=== PATIENT | female | born 1995 | race Caucasian/White ===

== ENCOUNTER 2017-04-15 11:26 | Emergency (ER) | payer OTHER ==
[2017-04-15] MEDS ORDERED: Ondansetron 4 MG/2 ML SDV IVPUSH ONE (12:19)
[2017-04-15] MEDS ORDERED: Sodium Chloride 0.9% 2.5 ML Syringe FLUSH PRN (12:19)
[2017-04-15] MEDS ORDERED: Sodium Chloride 0.9% 10 ML Syringe FLUSH PRN (12:19)
[2017-04-15] MEDS ORDERED: Sodium Chloride 0.9% 1,000 ML IV ONE (12:19)
--- NOTE | 2017-04-15 12:19 | EDM.PDOC ---
ED HPI GENERAL MEDICAL PROBLEM - General Chief Complaint: Gastrointestinal Problem Stated Complaint: NAUSEA/VOMITING Time Seen by Provider: 04/15/17 12:16 Source of Information: Reports: Patient, Family History Limitations: Reports: No Limitations - History of Present Illness INITIAL COMMENTS - FREE TEXT/NARRATIVE: HISTORY AND PHYSICAL: [] 22-year-old female who is complaining of nausea and vomiting. History of Present Illness: []Patient is 7-1/2 weeks . She has had some morning sickness but yesterday was unable to get out of bed and had morning sickness all day. Patient stated that she had diarrhea to the nurse . Review of Systems: As per history of present illness and below otherwise all systems reviewed and negative. Past medical history: As per history of present illness and as reviewed below otherwise noncontributory. Surgical history: As per history of present illness and as reviewed below otherwise noncontributory. Social history: No reported history of drug or alcohol abuse. Family history: As per history of present illness and as reviewed below otherwise noncontributory. Physical exam: Alert, pale female. Who states she does not feel ill other than the nausea and vomiting . Speaking well in full sentences without any shortness of breath HEENT: Atraumatic, normocehpalic, pupils reactive, negative for conjunctival pallor or scleral icterus, mucous membranes moist, throat clear, neck supple, nontender, trachea midline. Lungs: Clear to auscultation, breath sounds equal bilaterally, chest non tender. Heart: S1S2, regular, negative for clicks, rubs, or JVD. Abdomen: Soft, nondistended, nontender. Negative for masses or hepatossplenmegaly. Negative for costovertebral tenderness. Pelvis: Stable nontender. Genitourinary: Deferred. Rectal: Deferred Extremities: Atraumatic, negative for cords or calf pain. Neurovascular unremarkable. Neuro: Awake, alert, oriented. Cranial nerves II through XII unremarkable. Cerebellum unremarkable. Motor and sensory unremarkable throughout. Exam nonfocal. Patient is improved with the fluids given and Zofran. Diagnostics: [CBC CMP UA] Therapeutics: [1 L Normal saline IV] Zofran Impression: [Morning sickness/hyperemesis ] Plan: [Discharged to home Zofran 4 mg ODT Follow-up with your provider this week] Definitive disposition and diagnosis as appropriate pending reevaluation and review of above. Onset: Gradual Duration: Day(s): Location: Reports: Abdomen Severity: Moderate Improves with: Reports: None Worsens with: Reports: None - Related Data Allergies Allergy/AdvReac Type Severity Reaction Status Date / Time No Known Allergies Allergy Verified 04/15/17 11:54 Home Meds: Home Meds Ondansetron [Zofran ODT] 4 mg PO Q6H PRN #7 tab.dis 04/15/17 [Rx] Pnv No.95/Ferrous Fum/Folic AC [ Multivitamin Tablet] 1 each PO DAILY [History] Past Medical History [employer] History: Reports: Endocrine/Metabolic History: Reports: Other (See Below) Other Endocrine/Metabolic History: Reports treated for Graves disease last year Social & Family History - Family History Family Medical History: Noncontributory - Tobacco Use Smoking Status *Q: Never Smoker - Caffeine Use Caffeine Use: Reports: None - Recreational Drug Use Recreational Drug Use: No ED ROS GENERAL - Review of Systems Review Of Systems: ROS reveals no pertinent complaints other than HPI. ED EXAM, GI/ABD - Physical Exam Exam: See Below (See dictation) Course - Vital Signs Last Recorded V/S: Last Vital Signs Temp 37.2 C 04/15/17 12:07 Pulse 118 H 04/15/17 12:07 Resp 16 04/15/17 12:07 BP 129/76 04/15/17 12:07 Pulse Ox 97 04/15/17 12:07 - Orders/Labs/Meds Orders: Active Orders 24 hr Category Date Time Status Sodium Chloride 0.9% [Saline Flush] Med 04/15/17 12:19 Active 10 ml FLUSH ASDIRECTED PRN Sodium Chloride 0.9% [Saline Flush] Med 04/15/17 12:19 Active 2.5 ml FLUSH ASDIRECTED PRN Saline Lock Insert [OM.PC] Stat Oth 04/15/17 12:19 Ordered Medication Orders Sodium Chloride (Saline Flush) 10 ml FLUSH ASDIRECTED PRN PRN Reason: Keep Vein Open Last Admin: 04/15/17 13:02 Dose: 10 ml Sodium Chloride (Saline Flush) 2.5 ml FLUSH ASDIRECTED PRN PRN Reason: Keep Vein Open Last Admin: 04/15/17 13:02 Dose: 2.5 ml Labs: Laboratory Tests 04/15/17 04/15/17 04/15/17 Range/Units 12:05 12:26 12:26 WBC 7.70 (4.0-11.0) K/uL RBC 4.80 (4.30-5.90) M/uL Hgb 14.2 (12.0-16.0) g/dL Hct 39.4 (36.0-46.0) % MCV 82.1 (80.0-98.0) fL MCH 29.6 (27.0-32.0) pg MCHC 36.0 (31.0-37.0) g/dL RDW Std Deviation 35.1 (28.0-62.0) fl RDW Coeff of Maisha 12 (11.0-15.0) % Plt Count 256 (150-400) K/uL MPV 9.60 (7.40-12.00) fL Neut % (Auto) 68.0 (48.0-80.0) % Lymph % (Auto) 19.5 (16.0-40.0) % [place] % (Auto) 11.7 (0.0-15.0) % Eos % (Auto) 0.5 (0.0-7.0) % Baso % (Auto) 0.3 (0.0-1.5) % Neut # (Auto) 5.2 (1.4-5.7) K/uL Lymph # (Auto) 1.5 (0.6-2.4) K/uL [place] # (Auto) 0.9 H (0.0-0.8) K/uL Eos # (Auto) 0.0 (0.0-0.7) K/uL Baso # (Auto) 0.0 (0.0-0.1) K/uL Nucleated RBC % 0.0 /100WBC Nucleated RBCs # 0 K/uL Sodium 137 (136-146) mmol/L Potassium 3.8 (3.5-5.1) mmol/L Chloride 107 (98-110) mmol/L Carbon Dioxide 20 L (21-31) mmol/L BUN 7 (6.0-23.0) mg/dL Creatinine 0.6 (0.6-1.5) mg/dL Est Cr Clr Drug Dosing 160.39 mL/min Estimated GFR (MDRD) > 60.0 ml/min Glucose 107 (60-110) mg/dL Calcium 10.5 (8.8-10.8) mg/dL Total Bilirubin 0.4 (0.1-1.5) mg/dL AST 16 (5-40) IU/L ALT 20 (8-54) IU/L Alkaline Phosphatase 49 (40-150) Total Protein 7.6 (6.0-8.0) g/dL Albumin 4.3 (3.5-5.0) g/dL Globulin 3.3 (2.0-3.5) g/dL Albumin/Globulin Ratio 1.3 (1.3-2.8) Urine Color YELLOW Urine Appearance CLEAR Urine pH 6.0 (5.0-8.0) Ur Specific [place] 1.020 (1.001-1.035) Urine Protein NEGATIVE (NEGATIVE) mg/dL Urine Glucose (UA) NEGATIVE (NEGATIVE) mg/dL Urine Ketones 15 H (NEGATIVE) mg/dL Urine Occult Blood NEGATIVE (NEGATIVE) Urine Nitrite NEGATIVE (NEGATIVE) Urine Bilirubin SMALL H (NEGATIVE) Urine Ictotest NEGATIVE Urine Urobilinogen 0.2 (<2.0) EU/dL Ur Leukocyte Esterase NEGATIVE (NEGATIVE) Urine RBC NONE SEEN (0-2/HPF) Urine WBC 2-3 (0-5/HPF) Ur Epithelial Cells FEW (NONE-FEW) Amorphous Sediment HEAVY (NEGATIVE) Urine Bacteria FEW (NEGATIVE) Urine Mucus MODERATE (NONE-MOD) Meds: Medications Generic Name Dose Route Start Last Admin Trade Name Freq PRN Reason Stop Dose Admin Sodium Chloride 10 ml 04/15/17 12:19 04/15/17 13:02 Saline Flush FLUSH 10 ml ASDIRECTED PRN Administration Keep Vein Open Sodium Chloride 2.5 ml 04/15/17 12:19 04/15/17 13:02 Saline Flush FLUSH 2.5 ml ASDIRECTED PRN Administration Keep Vein Open Discontinued Medications Generic Name Dose Route Start Last Admin Trade Name Freq PRN Reason Stop Dose Admin Sodium Chloride 1,000 mls @ 999 mls/hr 04/15/17 12:19 04/15/17 12:42 Normal Saline IV 04/15/17 13:19 999 mls/hr STAT ONE Administration Ondansetron HCl 4 mg 04/15/17 12:19 04/15/17 12:42 Zofran IVPUSH 04/15/17 12:20 4 mg ONETIME ONE Administration Departure - Departure Time of Disposition: 13:31 Disposition: Home, Self-Care 01 Condition: Good Clinical Impression: Vomiting, Hyperemesis - Discharge Information Prescriptions: Ondansetron [Zofran ODT] 4 mg PO Q6H PRN #7 tab.dis PRN Reason: Nausea/Vomiting Instructions: Dehydration, Adult, [id number], Hyperemesis Gravidarum Referrals: Mimi Cole CNM [Primary Care Provider] - Forms: ED Department Discharge Additional Instructions: The following information is given to patients seen in the emergency department who are being discharged to home. This information is to outline your options for follow-up care. We provide all patients seen in our emergency department with a follow-up referral. The need for follow-up, as well as the timing and circumstances, are variable depending upon the specifics of your emergency department visit. If you don't have a primary care physician on staff, we will provide you with a referral. We always advise you to contact your personal physician following an emergency department visit to inform them of the circumstance of the visit and for follow-up with them and/or the need for any referrals to a consulting specialist. The emergency department will also refer you to a specialist when appropriate. This referral assures that you have the opportunity for followup care with a specialist. All of these measure are taken in an effort to provide you with optimal care, which includes your followup. Under all circumstances we always encourage you to contact your private physician who remains a resource for coordinating your care. When calling for followup care, please make the office aware that this follow-up is from your recent emergency room visit. If for any reason you are refused follow-up, please contact the [facility] emergency department at and asked to speak to the emergency department charge nurse. You were given fluids in the ER to help with. Mild dehydration Zofran was given to help with her nausea Prescriptions for Zofran were sent to your pharmacy - My Orders Last 24 Hours: My Active Orders 04/15/17 12:19 Sodium Chloride 0.9% [Saline Flush] 10 ml FLUSH ASDIRECTED PRN Sodium Chloride 0.9% [Saline Flush] 2.5 ml FLUSH ASDIRECTED PRN Saline Lock Insert [OM.PC] Stat - Assessment/Plan Last 24 Hours: My Active Orders 04/15/17 12:19 Sodium Chloride 0.9% [Saline Flush] 10 ml FLUSH ASDIRECTED PRN Sodium Chloride 0.9% [Saline Flush] 2.5 ml FLUSH ASDIRECTED PRN Saline Lock Insert [OM.PC] Stat
[2017-04-15 12:55] LABS: CHLORIDE,CL 107 mmol/L (98-110); SODIUM,NA 137 mmol/L (136-146)
== END 2017-04-15 13:45 | disposition home or self-care (01) ==
LOC: MW.ED 11:26
DX: O21.0 Mild hyperemesis gravidarum (principal); Z3A.01 Less than 8 weeks gestation of pregnancy
CPT/HCPCS: 36415; 80053; 81001; 85025; 87804; 96361; 96374; 99284; J2405; J7040

== ENCOUNTER 2017-06-03 22:02 | Emergency (ER) | payer OTHER ==
[2017-06-03] MEDS ORDERED: Sodium Chloride 0.9% 1,000 ML IV ONE (22:14)
[2017-06-03] MEDS ORDERED: Ondansetron 4 MG/2 ML SDV IVPUSH ONE (22:14)
--- NOTE | 2017-06-03 22:15 | EDM.PDOC ---
ED HPI GENERAL MEDICAL PROBLEM - General Chief Complaint: [employer] Problem Stated Complaint: PT VOMITING AND 14WKS Time Seen by Provider: 06/03/17 22:14 Source of Information: Reports: Patient - History of Present Illness INITIAL COMMENTS - FREE TEXT/NARRATIVE: HISTORY AND PHYSICAL: History of present illness: [Patient 14 weeks with IUP presents with 4 out of 5 abdominal cramping and multiple episodes of vomiting to numerous to count today no fever chills sweats no chest pain shortness breath headache dizziness palpitation no bowel or urine symptoms.... Symptoms improved/resolved with fluids No low back pain vaginal discharge leakage or bleeding spotting ] Review of systems: As per history of present illness and below otherwise all systems reviewed and negative. Past medical history: As per history of present illness and as reviewed below otherwise noncontributory. Surgical history: As per history of present illness and as reviewed below otherwise noncontributory. Social history: No reported history of drug or alcohol abuse. Family history: As per history of present illness and as reviewed below otherwise noncontributory. Physical exam: HEENT: Atraumatic, normocephalic, pupils reactive, negative for conjunctival pallor or scleral icterus, mucous membranes moist, throat clear, neck supple, nontender, trachea midline. Lungs: Clear to auscultation, breath sounds equal bilaterally, chest nontender. Heart: S1S2, regular, negative for clicks, rubs, or JVD. Abdomen: Soft, nondistended, nontender. Negative for masses or hepatosplenomegaly. Negative for costovertebral tenderness. Pelvis: Stable nontender. Genitourinary: Deferred. Rectal: Deferred. Extremities: Atraumatic, negative for cords or calf pain. Neurovascular unremarkable. Neuro: Awake, alert, oriented. Cranial nerves II through XII unremarkable. Cerebellum unremarkable. Motor and sensory unremarkable throughout. Exam nonfocal. Diagnostics: [UA ] Therapeutics: [1 L normal saline bolus Zofran 8 mg IV Zofran 8 mg ODT every 8 hours when necessary #30 no refill Rest fluids nutrition Follow-up with OB ] Impression: [ hyperemesis gravidarum ] Definitive disposition and diagnosis as appropriate pending reevaluation and review of above. Abdomen Pain Score (Numeric/FACES): 6 - Related Data Allergies Allergy/AdvReac Type Severity Reaction Status Date / Time No Known Allergies Allergy Verified 06/03/17 22:07 Home Meds: Home Meds Ondansetron [Zofran ODT] 4 mg PO Q6H PRN #7 tab.dis 04/15/17 [Rx] Pnv No.95/Ferrous Fum/Folic AC [ Multivitamin Tablet] 1 each PO DAILY [History] Past Medical History [employer]ERSON History: Reports: Endocrine/Metabolic History: Reports: Other (See Below) Other Endocrine/Metabolic History: Reports treated for Graves disease last year Social & Family History - Family History Family Medical History: Noncontributory - Tobacco Use Smoking Status *Q: Never Smoker - Caffeine Use Caffeine Use: Reports: None - Recreational Drug Use Recreational Drug Use: No ED ROS GENERAL - Review of Systems Review Of Systems: ROS reveals no pertinent complaints other than HPI. ED EXAM, GENERAL - Physical Exam Exam: See Below Course - Vital Signs Last Recorded V/S: Last Vital Signs Temp 98.7 F 06/03/17 22:02 Pulse 129 H 06/03/17 22:02 Resp 18 06/03/17 22:02 BP 128/73 06/03/17 22:02 Pulse Ox 96 06/03/17 22:02 - Orders/Labs/Meds Orders: Active Orders 24 hr Category Date Time Status UA W/MICROSCOPIC [URIN] Stat Lab 06/03/17 22:15 Ordered Sodium Chloride 0.9% [Normal Saline] 1,000 ml Med 06/03/17 22:14 Active IV STAT Medication Orders Sodium Chloride (Normal Saline) 1,000 mls @ 999 mls/hr IV STAT ONE Stop: 06/03/17 23:14 Last Admin: 06/03/17 22:27 Dose: 999 mls/hr Labs: Laboratory Tests 06/03/17 Range/Units 22:15 Urine Color YELLOW Urine Appearance CLEAR Urine pH 5.5 (5.0-8.0) Ur Specific [place] >= 1.030 (1.001-1.035) Urine Protein TRACE (NEGATIVE) mg/dL Urine Glucose (UA) NEGATIVE (NEGATIVE) mg/dL Urine Ketones >=80 (NEGATIVE) mg/dL Urine Occult Blood NEGATIVE (NEGATIVE) Urine Nitrite NEGATIVE (NEGATIVE) Urine Bilirubin SMALL H (NEGATIVE) Urine Ictotest NEGATIVE Urine Urobilinogen 0.2 (<2.0) EU/dL Ur Leukocyte Esterase NEGATIVE (NEGATIVE) Urine RBC 0-3 (0-2/HPF) Urine WBC 1-4 (0-5/HPF) Ur Epithelial Cells FEW (NONE-FEW) Urine Bacteria FEW (NEGATIVE) Meds: Medications Generic Name Dose Route Start Last Admin Trade Name Frenaeem PRN Reason Stop Dose Admin Sodium Chloride 1,000 mls @ 999 mls/hr 06/03/17 22:14 06/03/17 22:27 Normal Saline IV 06/03/17 23:14 999 mls/hr STAT ONE Administration Discontinued Medications Generic Name Dose Route Start Last Admin Trade Name Freq PRN Reason Stop Dose Admin Ondansetron HCl 8 mg 06/03/17 22:14 06/03/17 22:27 Zofran IVPUSH 06/03/17 22:15 8 mg ONETIME ONE Administration Departure - Departure Time of Disposition: 23:05 Disposition: Home, Self-Care 01 Condition: Good Clinical Impression: Hyperemesis - Discharge Information Referrals: PCP,None [Primary Care Provider] - Forms: ED Department Discharge Additional Instructions: The following information is given to patients seen in the emergency department who are being discharged to home. This information is to outline your options for follow-up care. We provide all patients seen in our emergency department with a follow-up referral. The need for follow-up, as well as the timing and circumstances, are variable depending upon the specifics of your emergency department visit. If you don't have a primary care physician on staff, we will provide you with a referral. We always advise you to contact your personal physician following an emergency department visit to inform them of the circumstance of the visit and for follow-up with them and/or the need for any referrals to a consulting specialist. The emergency department will also refer you to a specialist when appropriate. This referral assures that you have the opportunity for follow-up care with a specialist. All of these measure are taken in an effort to provide you with optimal care, which includes your follow-up. Under all circumstances we always encourage you to contact your private physician who remains a resource for coordinating your care. When calling for follow-up care, please make the office aware that this follow-up is from your recent emergency room visit. If for any reason you are refused follow-up, please contact the [facility] emergency department at and asked to speak to the emergency department charge nurse. - My Orders Last 24 Hours: My Active Orders 06/03/17 22:14 Sodium Chloride 0.9% [Normal Saline] 1,000 ml IV STAT 06/03/17 22:15 UA W/MICROSCOPIC [URIN] Stat - Assessment/Plan Last 24 Hours: My Active Orders 06/03/17 22:14 Sodium Chloride 0.9% [Normal Saline] 1,000 ml IV STAT 06/03/17 22:15 UA W/MICROSCOPIC [URIN] Stat
== END 2017-06-03 23:30 | disposition home or self-care (01) ==
LOC: MW.ED 22:02
DX: O21.0 Mild hyperemesis gravidarum (principal); Z79.899 Other long term (current) drug therapy; Z3A.14 14 weeks gestation of pregnancy
CPT/HCPCS: 81001; 96361; 96374; 99284; J2405; J7040

== ENCOUNTER 2017-11-18 06:11 | Inpatient (IN) | payer OTHER ==
[2017-11-18] MEDS ORDERED: Methylergonovine 0.2 MG/1 ML Amp IM PRN (06:38)
[2017-11-18] MEDS ORDERED: Tranexamic Acid 1,000 MG in Sodium Chloride 0.9% 100 ML IV PRN (06:38)
[2017-11-18] MEDS ORDERED: Butorphanol 1 MG/ML SDV IVPUSH PRN (06:38)
[2017-11-18] MEDS ORDERED: Sodium Chloride 0.9% 10 ML Syringe FLUSH PRN (06:38)
[2017-11-18] MEDS ORDERED: Nalbuphine 10 MG/1 ML Vial IVPUSH PRN ×2 (06:38→09:34)
[2017-11-18] MEDS ORDERED: Misoprostol 200 MCG Tab PO PRN (06:38)
[2017-11-18] MEDS ORDERED: Lidocaine 1% 50 ML MDV INJECT PRN (06:38)
[2017-11-18] MEDS ORDERED: Water For Irrigation,Sterile 1,000 ML Container IRR PRN (06:38)
[2017-11-18] MEDS ORDERED: Carboprost Tromethamine 250 MCG/1 ML Amp IM PRN (06:38)
[2017-11-18] MEDS ORDERED: Sodium Chloride 0.9% 2.5 ML Syringe FLUSH PRN (06:38)
[2017-11-18] MEDS: Lactated Ringers 1,000 ML IV SCH ×2 (06:41→07:43)
[2017-11-18] MEDS ORDERED: Oxytocin/0.9 % Sodium Chloride 30 UNIT/500 ML BAG IV SCH ×2 (06:45→08:30)
--- NOTE | 2017-11-18 07:06 | PCM.LDHP ---
L&D History of Present Illness - General Date of Service: 11/18/17 Admit Problem/Dx: Patient Status Order with Admit Dx/Problem 11/18/17 06:37 Patient Status [ADT] Routine 11/18/17 06:39 Patient Status [ADT] Routine Admission Diagnosis/Problem Admission Diagnosis/Problem 11/18/17 06:58 22yo EDC 11/29/2017 38 3/7wks, B+, R-NI, GBS neg. SROM bloody, FHT non reassuring Source of Information: Patient History Limitations: Reports: No Limitations - History of Present Illness Timing/Duration: Reports: minutes: Location, : Reports: Abdomen Quality: Reports: Stabbing Improves with: Reports: None Worsens with: Reports: None Associated Symptoms: Reports: N - Related Data Allergies/Adverse Reactions: Allergies Allergy/AdvReac Type Severity Reaction Status Date / Time No Known Allergies Allergy Verified 06/03/17 22:07 Home Medications: Home Meds Ondansetron [Zofran ODT] 4 mg PO Q6H PRN #7 tab.dis 04/15/17 [Rx] Pnv No.95/Ferrous Fum/Folic AC [ Multivitamin Tablet] 1 each PO DAILY [History] Past Medical History [employer] History: Reports: Endocrine/Metabolic History: Reports: Other (See Below) Other Endocrine/Metabolic History: Reports treated for Graves disease last year Dermatologic History: Reports: Other (See Below) Other Dermatologic History: foot cyst - Past Surgical History GI Surgical History: Reports: Appendectomy Social & Family History - Family History Family Medical History: Noncontributory - Caffeine Use Caffeine Use: Reports: None H&P Review of Systems - Review of Systems: Review Of Systems: See Below General: Reports: No Symptoms HEENT: Reports: No Symptoms Pulmonary: Reports: No Symptoms Cardiovascular: Reports: No Symptoms Gastrointestinal: Reports: No Symptoms Genitourinary: Reports: No Symptoms Musculoskeletal: Reports: No Symptoms Skin: Reports: No Symptoms Psychiatric: Reports: No Symptoms Neurological: Reports: No Symptoms Hematologic/Lymphatic: Reports: No Symptoms Immunologic: Reports: No Symptoms L&D Exam - Exam Exam: See Below - Vital Signs Weight: 89.386 kg - OB Specific Contraction Intensity: Strong Movement: Active Heart Tones: Present Heart Tones per Min: 140 (Cat II) Heart Rate (FHR) Variability: Moderate (6-25 bmp) Presentation: Vertex - Mathews Score Mathews Score Cervix Position: Midposition Mathews Score Consistency: Soft Mathews Score Effacement: >80% Mathews Score Dilation: 3-4 cm Mathews Score Infant's Station: -2 Mathews Score Total: 9 - Exam General: Alert, Oriented HEENT: Hearing Intact Lungs: Clear to Auscultation, Normal Respiratory Effort Cardiovascular: Regular Rate, Regular Rhythm, Normal S1, Normal S2 GI/Abdominal Exam: Soft Rectal Exam: Deferred Genitourinary: Normal external exam, Normal bimanual exam, Cervical dilitation, Cervical fluid, Vaginal bleeding Back Exam: Normal Inspection, Full Range of Motion Extremities: Normal Inspection, Normal Range of Motion, Non-Tender, No Pedal Edema, Normal Capillary Refill Skin: Warm, Dry, Intact Neurological: Cranial Nerves Intact, Reflexes Equal Bilateral, Strength Equal Bilateral, Normal Speech, Normal Tone Psychiatric: Alert, Normal Affect, Normal Mood - Patient Data Lab Results Last 24 hrs: Laboratory Results - last 24 hr 11/18/17 Range/Units 06:40 WBC 10.80 (4.0-11.0) K/uL RBC 4.34 (4.30-5.90) M/uL Hgb 12.8 (12.0-16.0) g/dL Hct 36.6 (36.0-46.0) % MCV 84.3 (80.0-98.0) fL MCH 29.5 (27.0-32.0) pg MCHC 35.0 (31.0-37.0) g/dL RDW Std Deviation 39.4 (28.0-62.0) fl RDW Coeff of Maisha 13 (11.0-15.0) % Plt Count 217 (150-400) K/uL MPV 10.80 (7.40-12.00) fL Nucleated RBC % 0.0 /100WBC Nucleated RBCs # 0 K/uL Result Diagrams: 11/18/17 06:40 - Problem List (1) Supervision of normal IUP (intrauterine ) in primigravida SNOMED Code(s): 83478738, 181970980, 517863121, 704875214 ICD Code: Z34.00 - ENCNTR FOR SUPRVSN OF NORMAL FIRST , UNSP TRIMESTER Status: Acute Priority: High Current Visit: Yes Qualifiers: Trimester: third trimester Qualified Code(s): Z34.03 - Encounter for supervision of normal first , third trimester (2) Delayed delivery after SROM (spontaneous rupture of membranes) SNOMED Code(s): 95868817 ICD Code: O42.90 - BÁRBARA ROM, 7TH0 BETW RUPT & ONST LABR, UNSP WEEKS OF GEST Status: Acute Priority: High Current Visit: Yes Problem List Initiated/Reviewed/Updated: Yes Orders Last 24hrs: Active Orders 24 hr Category Date Time Status Patient Status [ADT] Routine ADT 11/18/17 06:37 Active Patient Status [ADT] Routine ADT 11/18/17 06:39 Active Heart Tones [RC] CONTINUOUS Care 11/18/17 06:39 Active Non Stress Test [RC] PER UNIT ROUTINE Care 11/18/17 06:37 Active Non Stress Test [RC] PER UNIT ROUTINE Care 11/18/17 06:39 Active May Shower [RC] ASDIRECTED Care 11/18/17 06:39 Active Notify Provider [RC] PRN Care 11/18/17 06:39 Active Up ad Marysol [RC] ASDIRECTED Care 11/18/17 06:37 Active Up ad Marysol [RC] ASDIRECTED Care 11/18/17 06:39 Active Vaginal Exam [RC] Click to Edit Care 11/18/17 06:37 Active Vaginal Exam [RC] PRN Care 11/18/17 06:39 Active Vital Signs [RC] PER UNIT ROUTINE Care 11/18/17 06:37 Active Vital Signs [RC] PER UNIT ROUTINE Care 11/18/17 06:39 Active TYPE AND SCREEN [BBK] Routine Lab 11/18/17 06:40 Received Butorphanol [Stadol] Med 11/18/17 06:38 Active 1 mg IVPUSH Q1H PRN Carboprost Tromethamine [Hemabate DS] Med 11/18/17 06:38 Active 250 mcg IM ASDIRECTED PRN Lactated Ringers [Ringers, Lactated] 1,000 ml Med 11/18/17 06:45 Active IV ASDIRECTED Lidocaine 1% [Xylocaine 1%] Med 11/18/17 06:38 Active 50 ml INJECT ONETIME PRN Methylergonovine [Methergine] Med 11/18/17 06:38 Active 0.2 mg IM ASDIRECTED PRN Nalbuphine [Nubain] Med 11/18/17 06:38 Active 10 mg IVPUSH Q1H PRN Oxytocin/0.9 % Sodium Chloride [Oxytocin 30 Unit/500 ML Med 11/18/17 06:45 Active -NS] 30 unit in 500 ml IV TITRATE Sodium Chloride 0.9% [Saline Flush] Med 11/18/17 06:38 Active 10 ml FLUSH ASDIRECTED PRN Sodium Chloride 0.9% [Saline Flush] Med 11/18/17 06:38 Active 2.5 ml FLUSH ASDIRECTED PRN Tranexamic Acid [Cyklokapron] 1,000 mg Med 11/18/17 06:38 Active Sodium Chloride 0.9% [Normal Saline] 100 ml IV ONETIME Water For Irrigation,Sterile [Sterile Water for Med 11/18/17 06:38 Active Irrigation] 1,000 ml IRR ASDIRECTED PRN miSOPROStol [Cytotec] Med 11/18/17 06:38 Active 200 mcg PO ONETIME PRN Scalp Electrode [WOMSER] Per Unit Routine Oth 11/18/17 06:39 Ordered Peripheral IV Insertion Adult [OM.PC] Routine Oth 11/18/17 06:39 Ordered Resuscitation Status Routine Resus Stat 11/18/17 06:36 Ordered Medication Orders Butorphanol Tartrate (Stadol) 1 mg IVPUSH Q1H PRN PRN Reason: Pain Carboprost Tromethamine (Hemabate Ds) 250 mcg IM ASDIRECTED PRN PRN Reason: Post Hemorrhage Tranexamic Acid 1,000 mg/ (Sodium Chloride) 110 mls @ 660 mls/hr IV ONETIME PRN PRN Reason: Bleeding Lactated Ringer's (Ringers, Lactated) 1,000 mls @ 150 mls/hr IV ASDIRECTED MAXIMINO Last Admin: 11/18/17 06:41 Dose: 150 mls/hr Oxytocin/Sodium Chloride (Oxytocin 30 Unit/500 Ml-Ns) 30 unit in 500 mls @ 999 mls/hr IV TITRATE MAXIMINO Lidocaine HCl (Xylocaine 1%) 50 ml INJECT ONETIME PRN PRN Reason: Laceration repair Methylergonovine Maleate (Methergine) 0.2 mg IM ASDIRECTED PRN PRN Reason: Post Hemorrhage Misoprostol (Cytotec) 200 mcg PO ONETIME PRN PRN Reason: Post Hemorrhage Nalbuphine HCl (Nubain) 10 mg IVPUSH Q1H PRN PRN Reason: Pain (severe 7-10) Sodium Chloride (Saline Flush) 10 ml FLUSH ASDIRECTED PRN PRN Reason: Keep Vein Open Sodium Chloride (Saline Flush) 2.5 ml FLUSH ASDIRECTED PRN PRN Reason: Keep Vein Open Sterile Water (Sterile Water For Irrigation) 1,000 ml IRR ASDIRECTED PRN PRN Reason: delivery Assessment/Plan Comment:: Labor A: 22yo EDC 11/29/2017 38 3/7wks, B+, R-NI, GBS neg. 2-80/-2 SROM bloody, FHT non reassuring Cat II tracing P: Admit, IV w/bolus, GBS neg, Epidural now, Dr Landon updated. Considering C/S due to FHT.
--- NOTE | 2017-11-18 07:26 | PCM.PREANE ---
Preanesthetic Assessment - Anesthesia/Transfusion/Family Hx Anesthesia History: Prior Anesthesia Without Reaction Family History of Anesthesia Reaction: No Transfusion History: No Prior Transfusion(s) - Review of Systems General: No Symptoms Pulmonary: No Symptoms Cardiovascular: No Symptoms Gastrointestinal: No Symptoms Neurological: No Symptoms Other: Reports: None - Physical Assessment Height: 5 ft 10 in Weight: 89.386 kg ASA Class: 2 Mental Status: Alert & Oriented x3 Airway Class: Mallampati = 2 Dentition: Reports: Normal Dentition Thyro-Mental Finger Breadths: 3 Mouth Opening Finger Breadths: 3 ROM/Head Extension: Full Lungs: Clear to Auscultation, Normal Respiratory Effort Cardiovascular: Regular Rate, Regular Rhythm - Lab Values: Laboratory Last Values WBC 10.80 K/uL (4.0-11.0) 11/18/17 06:40 RBC 4.34 M/uL (4.30-5.90) 11/18/17 06:40 Hgb 12.8 g/dL (12.0-16.0) 11/18/17 06:40 Hct 36.6 % (36.0-46.0) 11/18/17 06:40 MCV 84.3 fL (80.0-98.0) 11/18/17 06:40 MCH 29.5 pg (27.0-32.0) 11/18/17 06:40 MCHC 35.0 g/dL (31.0-37.0) 11/18/17 06:40 RDW Std Deviation 39.4 fl (28.0-62.0) 11/18/17 06:40 RDW Coeff of Maisha 13 % (11.0-15.0) 11/18/17 06:40 Plt Count 217 K/uL (150-400) 11/18/17 06:40 MPV 10.80 fL (7.40-12.00) 11/18/17 06:40 Nucleated RBC % 0.0 /100WBC 11/18/17 06:40 Nucleated RBCs # 0 K/uL 11/18/17 06:40 - Allergies Allergies/Adverse Reactions: Allergies Allergy/AdvReac Type Severity Reaction Status Date / Time No Known Allergies Allergy Verified 06/03/17 22:07 - Anesthesia Plan Free Text/Narrative:: possible placental abruption per Mimi Mora. Type and cross ordered by me , possible . - Acknowledgements Anesthesia Type Planned: Epidural Pt an Appropriate Candidate for the Planned Anesthesia: Yes Alternatives and Risks of Anesthesia Discussed w Pt/Guardian: Yes Pt/Guardian Understands and Agrees with Anesthesia Plan: Yes PreAnesthesia Questionnaire HEENT History: Reports: None Cardiovascular History: Reports: None Respiratory History: Reports: None Gastrointestinal History: Reports: GERD Genitourinary History: Reports: None CONGRESSIONAL AIDE History: Reports: : 1 Para: 0 LMP (Approximate): Musculoskeletal History: Reports: None Neurological History: Reports: None Psychiatric History: Reports: None Endocrine/Metabolic History: Reports: Hypothyroidism, Other (See Below) Other Endocrine/Metabolic History: Reports treated for Graves disease last year Hematologic History: Reports: None Immunologic History: Reports: None Oncologic (Cancer) History: Reports: None Dermatologic History: Reports: Other (See Below) Other Dermatologic History: foot cyst - Infectious Disease History Infectious Disease History: Reports: None - Past Surgical History GI Surgical History: Reports: Appendectomy - HOME MEDS Home Medications: Home Meds Ondansetron [Zofran ODT] 4 mg PO Q6H PRN #7 tab.dis 04/15/17 [Rx] Pnv No.95/Ferrous Fum/Folic AC [ Multivitamin Tablet] 1 each PO DAILY [History] - CURRENT (IN HOUSE) MEDS Current Meds: Current Medications Butorphanol Tartrate (Stadol) 1 mg IVPUSH Q1H PRN PRN Reason: Pain Carboprost Tromethamine (Hemabate Ds) 250 mcg IM ASDIRECTED PRN PRN Reason: Post Hemorrhage Tranexamic Acid 1,000 mg/ (Sodium Chloride) 110 mls @ 660 mls/hr IV ONETIME PRN PRN Reason: Bleeding Lactated Ringer's (Ringers, Lactated) 1,000 mls @ 150 mls/hr IV ASDIRECTED [facility] Last Admin: 11/18/17 06:41 Dose: 150 mls/hr Oxytocin/Sodium Chloride (Oxytocin 30 Unit/500 Ml-Ns) 30 unit in 500 mls @ 999 mls/hr IV TITRATE [facility]IMINO Lidocaine HCl (Xylocaine 1%) 50 ml INJECT ONETIME PRN PRN Reason: Laceration repair Methylergonovine Maleate (Methergine) 0.2 mg IM ASDIRECTED PRN PRN Reason: Post Hemorrhage Misoprostol (Cytotec) 200 mcg PO ONETIME PRN PRN Reason: Post Hemorrhage Nalbuphine HCl (Nubain) 10 mg IVPUSH Q1H PRN PRN Reason: Pain (severe 7-10) Sodium Chloride (Saline Flush) 10 ml FLUSH ASDIRECTED PRN PRN Reason: Keep Vein Open Sodium Chloride (Saline Flush) 2.5 ml FLUSH ASDIRECTED PRN PRN Reason: Keep Vein Open Sterile Water (Sterile Water For Irrigation) 1,000 ml IRR ASDIRECTED PRN PRN Reason: delivery
[2017-11-18] MEDS ORDERED: Bupivacaine 0.5% 10 ML SDV ONE (08:08)
[2017-11-18] MEDS ORDERED: ceFAZolin 1 GM in Premix Bag 1 BAG IV ONE (08:23)
[2017-11-18] MEDS ORDERED: ceFAZolin 1 GM Vial ONE (08:27)
[2017-11-18] MEDS ORDERED: Sodium Chloride 0.9% 20 ML ONE (08:27)
[2017-11-18] MEDS ORDERED: Oxytocin 10 Units/1 ML SDV ONE (08:29)
[2017-11-18] MEDS ORDERED: Lactated Ringers 1,000 ML IV SCH ×2 (08:30→09:15)
[2017-11-18] MEDS ORDERED: Ondansetron 4 MG/2 ML SDV ONE (08:31)
[2017-11-18] MEDS ORDERED: Morphine PF 1 MG/ML Amp ONE (08:41)
[2017-11-18] MEDS ORDERED: ePHEDrine 50 MG/ML SDV ONE (08:48)
[2017-11-18] MEDS ORDERED: fentaNYL 100 MCG/2 ML SDV ONE ×2 (08:49→08:55)
[2017-11-18] MEDS ORDERED: Octyl 2-Cyanoacrylate 1 Tube ONE (09:10)
[2017-11-18] MEDS ORDERED: Lanolin 100% Cream 7 GM Tube TOP PRN (09:12)
[2017-11-18] MEDS ORDERED: Bisacodyl 10 MG Supp RECTAL PRN (09:12)
[2017-11-18] MEDS ORDERED: Acetaminophen/oxyCODONE 325-5 MG Tab PO PRN ×2 (09:12)
[2017-11-18] MEDS ORDERED: diphenhydrAMINE 50 MG/ML SDV IVPUSH PRN ×2 (09:12→09:34)
[2017-11-18] MEDS ORDERED: Ondansetron 4 MG/2 ML SDV IV PRN (09:12)
--- NOTE | 2017-11-18 09:15 | PCM.OPNOTE ---
- General Post-Op/Procedure Note Date of Surgery/Procedure: 11/18/17 Operative Procedure(s): Primary C/section Pre Op Diagnosis: [id number]+ nonreassuring FAR Post-Op Diagnosis: Same Anesthesia Technique: Epidural Primary Surgeon: Evaristo Landon Industrial Engineering: Mimi Cole EBL in mLs: 700 Complications: None Condition: Good
[2017-11-18] MEDS ORDERED: Naloxone 0.4 MG/ML Syringe IVPUSH PRN (09:34)
[2017-11-18] MEDS: Ketorolac 30 MG/ML SDV IVPUSH SCH ×3 (09:48→21:28)
--- NOTE | 2017-11-18 10:13 | PCM.POSTAN ---
POST ANESTHESIA ASSESSMENT - MENTAL STATUS Mental Status: Alert, Oriented - RESPIRATORY Respiratory Status: Respiratory Rate WNL, Airway Patent, O2 Saturation Stable - CARDIOVASCULAR CV Status: Pulse Rate WNL, Blood Pressure Stable - GASTROINTESTINAL GI Status: No Symptoms - PAIN Pain Score: 1 - POST OP HYDRATION Hydration Status: Adequate & Stable
[2017-11-18] MEDS: Docusate Sodium 100 MG Cap PO SCH (21:27)
[2017-11-19] MEDS: Ketorolac 30 MG/ML SDV IVPUSH SCH ×2 (05:02→10:07)
--- NOTE | 2017-11-19 09:43 | PCM48HPAN ---
Post Anesthesia Note - EVALUATION WITHIN 48HRS OF ANESTHETIC Vital Signs in Normal Range: Yes Patient Participated in Evaluation: Yes Respiratory Function Stable: Yes Airway Patent: Yes Cardiovascular Function Stable: Yes Hydration Status Stable: Yes Pain Control Satisfactory: Yes Nausea and Vomiting Control Satisfactory: Yes Mental Status Recovered: Yes Resp Rate: 15
[2017-11-19] MEDS: Docusate Sodium 100 MG Cap PO SCH (10:07)
--- NOTE | 2017-11-19 10:32 | PCM.PNPP ---
- General Info Date of Service: 11/19/17 Admission Dx/Problem (Free Text): Patient Status Order with Admit Dx/Problem 11/18/17 06:37 Patient Status [ADT] Routine 11/18/17 06:39 Patient Status [ADT] Routine Admission Diagnosis/Problem Admission Diagnosis/Problem 11/18/17 06:58 22yo EDC 11/29/2017 38 3/7wks, B+, R-NI, GBS neg. SROM bloody, FHT non reassuring Functional Status: Reports: Pain Controlled, Tolerating Diet, Ambulating, Urinating - Review of Systems General: Reports: No Symptoms HEENT: Reports: No Symptoms Pulmonary: Reports: No Symptoms Cardiovascular: Reports: No Symptoms Gastrointestinal: Reports: No Symptoms Genitourinary: Reports: No Symptoms Musculoskeletal: Reports: No Symptoms Skin: Reports: No Symptoms Neurological: Reports: No Symptoms Psychiatric: Reports: No Symptoms - General Info Date of Service: 11/19/17 - Patient Data Vital Signs - Most Recent: Last Vital Signs Temp 36.9 C 11/19/17 07:30 Pulse 64 11/19/17 07:30 Resp 15 11/19/17 09:43 BP 106/57 L 11/19/17 07:30 Pulse Ox 90 L 11/19/17 07:30 Weight - Most Recent: 89.386 kg I&O - Last 24 Hours: Intake & Output 11/18/17 11/19/17 11/19/17 22:59 06:59 14:59 Intake Total 750 Output Total 1800 Balance -1050 Lab Results - Last 24 Hours: Laboratory Results - last 24 hr 11/19/17 Range/Units 05:29 Hgb 11.2 L (12.0-16.0) g/dL Hct 32.5 L (36.0-46.0) % Med Orders - Current: Current Medications Bisacodyl (Dulcolax) 10 mg RECTAL ONETIME PRN PRN Reason: Constipation Butorphanol Tartrate (Stadol) 1 mg IVPUSH Q1H PRN PRN Reason: Pain Carboprost Tromethamine (Hemabate Ds) 250 mcg IM ASDIRECTED PRN PRN Reason: Post Hemorrhage Diphenhydramine HCl (Benadryl) 25 mg IVPUSH Q6H PRN PRN Reason: Itching or Nausea Docusate Sodium (Colace) 100 mg PO BID [facility] Last Admin: 11/19/17 10:07 Dose: 100 mg Emollient Ointment (Lansinoh Hpa) 0 gm TOP ASDIRECTED PRN PRN Reason: Sore Nipples Tranexamic Acid 1,000 mg/ (Sodium Chloride) 110 mls @ 660 mls/hr IV ONETIME PRN PRN Reason: Bleeding Lactated Ringer's (Ringers, Lactated) 1,000 mls @ 150 mls/hr IV ASDIRECTED [facility] Last Admin: 11/18/17 07:43 Dose: 999 mls/hr Oxytocin/Sodium Chloride (Oxytocin 30 Unit/500 Ml-Ns) 30 unit in 500 mls @ 999 mls/hr IV TITRATE [facility] Oxytocin/Sodium Chloride (Oxytocin 30 Unit/500 Ml-Ns) 30 unit in 500 mls @ 250 mls/hr IV TITRATE [facility] Lactated Ringer's (Ringers, Lactated) 1,000 mls @ 500 mls/hr IV BOLUS [facility] Last Admin: 11/18/17 08:10 Dose: 999 mls/hr Lactated Ringer's (Ringers, Lactated) 1,000 mls @ 125 mls/hr IV ASDIRECTED [facility] Last Admin: 11/18/17 15:04 Dose: 125 mls/hr Ibuprofen (Motrin) 800 mg PO Q8H PRN PRN Reason: mild pain or fever Lidocaine HCl (Xylocaine 1%) 50 ml INJECT ONETIME PRN PRN Reason: Laceration repair Methylergonovine Maleate (Methergine) 0.2 mg IM ASDIRECTED PRN PRN Reason: Post Hemorrhage Misoprostol (Cytotec) 200 mcg PO ONETIME PRN PRN Reason: Post Hemorrhage Nalbuphine HCl (Nubain) 10 mg IVPUSH Q1H PRN PRN Reason: Pain (severe 7-10) Ondansetron HCl (Zofran) 4 mg IV Q4H PRN PRN Reason: Nausea/Vomiting Last Admin: 11/18/17 16:25 Dose: 4 mg Oxycodone/Acetaminophen (Percocet 325-5 Mg) 1 tab PO Q4H PRN PRN Reason: Pain (moderate 4-6) Oxycodone/Acetaminophen (Percocet 325-5 Mg) 2 tab PO Q4H PRN PRN Reason: Pain (moderate 4-6) Sodium Chloride (Saline Flush) 10 ml FLUSH ASDIRECTED PRN PRN Reason: Keep Vein Open Sodium Chloride (Saline Flush) 2.5 ml FLUSH ASDIRECTED PRN PRN Reason: Keep Vein Open Sterile Water (Sterile Water For Irrigation) 1,000 ml IRR ASDIRECTED PRN PRN Reason: delivery Discontinued Medications Bupivacaine HCl (Sensorcaine-Mpf 0.5%) Confirm Administered Dose 20 ml .ROUTE .STK-MED ONE Stop: 11/18/17 08:09 Cefazolin Sodium (Ancef) Confirm Administered Dose 2 gm .ROUTE .STK-MED ONE Stop: 11/18/17 08:28 Diphenhydramine HCl (Benadryl) 25 mg IVPUSH Q4H PRN PRN Reason: Itching Stop: 11/19/17 09:35 Ephedrine Sulfate (Ephedrine Sulfate) Confirm Administered Dose 50 mg .ROUTE .STK-MED ONE Stop: 11/18/17 08:49 Fentanyl (Sublimaze) Confirm Administered Dose 100 mcg .ROUTE .STK-MED ONE Stop: 11/18/17 08:50 Fentanyl (Sublimaze) Confirm Administered Dose 100 mcg .ROUTE .STK-MED ONE Stop: 11/18/17 08:56 Fentanyl/Bupivacaine HCl (Svhwrsyu-Wjkbn-Lw 2 Mcg/Ml-0.125%) Confirm Administered Dose 100 mls @ as directed EP .STK-MED ONE Stop: 11/18/17 07:31 Cefazolin Sodium/Dextrose 1 gm (/ Premix) 50 mls @ 100 mls/hr IV ONETIME ONE Stop: 11/18/17 08:52 Sodium Chloride (Normal Saline) Confirm Administered Dose 20 mls @ as directed .ROUTE .STK-MED ONE Stop: 11/18/17 08:28 Acetaminophen (Ofirmev) Confirm Administered Dose 100 mls @ as directed IV .STK- MED ONE Stop: 11/18/17 09:04 Ketorolac Tromethamine (Toradol) 30 mg IVPUSH Q6H MAXIMINO Stop: 11/19/17 09:16 Last Admin: 11/19/17 10:07 Dose: 30 mg Morphine Sulfate (Duramorph Pf) Confirm Administered Dose 1 mg .ROUTE .STK-MED ONE Stop: 11/18/17 08:42 Nalbuphine HCl (Nubain) 5 mg IVPUSH Q3H PRN PRN Reason: Pruritis Stop: 11/19/17 09:35 Naloxone HCl (Narcan) 0.1 mg IVPUSH ONETIME PRN PRN Reason: Respiratory Depression Stop: 11/19/17 09:35 Octyl Cyanoacrylate (Dermabond Advance) Confirm Administered Dose 1 applic .ROUTE .STK-MED ONE Stop: 11/18/17 09:11 Ondansetron HCl (Zofran) Confirm Administered Dose 4 mg .ROUTE .STK-MED ONE Stop: 11/18/17 08:32 Oxytocin (Pitocin) Confirm Administered Dose 20 unit .ROUTE .STK-MED ONE Stop: 11/18/17 08:30 - Infant Interaction Disposition, : [place] to Nursery Interaction: Holding Infant Feeding: Breastfed ; Nursed Well Support Person: - Recovery Exam Fundal Tone: Firm Fundal Level: 1 Fingerbreadths Below Umbilicus Fundal Placement: Midline Lochia Amount: Scant Lochia Color: Rubra/Red Perineum Description: Intact, Minimal Bruising/Swelling Episiotomy/Laceration: Approximated Bladder Status: Voiding Urinary Elimination: Voided - Exam General: Alert, Cooperative, No Acute Distress Lungs: Clear to Auscultation, Normal Respiratory Effort Cardiovascular: Regular Rate, Regular Rhythm, No Murmurs GI/Abdominal Exam: Normal Bowel Sounds, Soft, Non-Tender, No Organomegaly, No Distention, No Abnormal Bruit, No Mass, Pelvis Stable Extremities: Normal Inspection, Normal Range of Motion, Non-Tender, No Pedal Edema, Normal Capillary Refill Skin: Warm, Dry, Intact Wound/Incisions: Healing Well, Dressing Dry and Intact, No Drainage Neurological: No New Focal Deficit, Normal Speech, Normal Tone, Strength Equal Bilateral Psy/Mental Status: Alert, Normal Affect, Normal Mood - Problem List & Annotations (1) Supervision of normal IUP (intrauterine ) in primigravida SNOMED Code(s): 36809797, 242149834, 534605485, 530280812 Code(s): Z34.00 - ENCNTR FOR SUPRVSN OF NORMAL FIRST , UNSP TRIMESTER Status: Acute Priority: High Current Visit: Yes Qualifiers: Trimester: third trimester Qualified Code(s): Z34.03 - Encounter for supervision of normal first , third trimester (2) Delayed delivery after SROM (spontaneous rupture of membranes) SNOMED Code(s): 14413350 Code(s): O42.90 - BÁRBARA ROM, 7TH0 BETW RUPT & ONST LABR, UNSP WEEKS OF GEST Status: Acute Priority: High Current Visit: Yes (3) delivery delivered SNOMED Code(s): 040073874 Code(s): O82 - ENCOUNTER FOR DELIVERY WITHOUT INDICATION Status: Acute Priority: High Current Visit: Yes - Problem List Review Problem List Initiated/Reviewed/Updated: Yes - Plan Plan:: Labor A: 22yo EDC 11/29/2017 38 3/7wks, B+, R-NI, GBS neg. 2-/-2 SROM bloody, FHT non reassuring Cat II tracing P: Admit, IV w/bolus, GBS neg, Epidural now, Dr Landon updated. Considering C/S due to FHT. PPD#1 A: VSS, AF, pain minimal, up out of bed walking well, lochia small, incision dressing noted no drainage, breast feeding well. No complaints P: routine pp plan of care. D/C home tomorrow with if continued stable.
[2017-11-19] MEDS: Ibuprofen 800 MG Tab PO PRN (16:26)
[2017-11-20] MEDS: Docusate Sodium 100 MG Cap PO SCH ×2 (00:26→08:21)
[2017-11-20] MEDS: Ibuprofen 800 MG Tab PO PRN (02:46)
--- NOTE | 2017-11-20 08:18 | PCM.DCSUM1 ---
Discharge Summary - Hospital Course Free Text/Narrative:: Discharge home with infant. Follow up in 1 weeks for incision check and 6 weeks for post . Diagnosis: Stroke: No - Discharge Data Discharge Date: 11/20/17 Discharge Disposition: Home, Self-Care 01 Condition: Good - Discharge Diagnosis/Problem(s) (1) Supervision of normal IUP (intrauterine ) in primigravida SNOMED Code(s): 77757463, 822923811, 557201642, 532817883 ICD Code: Z34.00 - ENCNTR FOR SUPRVSN OF NORMAL FIRST , UNSP TRIMESTER Status: Acute Priority: High Current Visit: Yes Qualifiers: Trimester: third trimester Qualified Code(s): Z34.03 - Encounter for supervision of normal first , third trimester (2) Delayed delivery after SROM (spontaneous rupture of membranes) SNOMED Code(s): 29120133 ICD Code: O42.90 - BÁRBARA ROM, 7TH0 BETW RUPT & ONST LABR, UNSP WEEKS OF GEST Status: Acute Priority: High Current Visit: Yes (3) delivery delivered SNOMED Code(s): 084250632 ICD Code: O82 - ENCOUNTER FOR DELIVERY WITHOUT INDICATION Status: Acute Priority: High Current Visit: Yes - Patient Summary/Data Operative Procedure(s) Performed: Primary C/section - Patient Instructions Diet: Usual Diet as Tolerated Activity: As Tolerated, No Strenuous Activities, Rest and Relax Today Driving: May Drive Today Showering/Bathing: May Shower Wound/Incision Care: Keep Operative Site/Wound Site Clean and Dry Notify Provider of: Fever, Increased Pain, Swelling and Redness, Drainage, Nausea and/or Vomiting Other/Special Instructions: Discharge home with . Follow up in 1 weeks for incision check and 6 weeks for post . - Discharge Plan *PRESCRIPTION DRUG MONITORING PROGRAM REVIEWED*: Not Applicable *COPY OF PRESCRIPTION DRUG MONITORING REPORT IN PATIENT PHOEBE: Not Applicable Home Medications: Home Meds Ondansetron [Zofran ODT] 4 mg PO Q6H PRN #7 tab.dis 04/15/17 [Rx] Pnv No.95/Ferrous Fum/Folic AC [ Multivitamin Tablet] 1 each PO DAILY [History] - General Info Date of Service: 11/20/17 Admission Dx/Problem (Free Text: Patient Status Order with Admit Dx/Problem 11/18/17 06:37 Patient Status [ADT] Routine 11/18/17 06:39 Patient Status [ADT] Routine Admission Diagnosis/Problem Admission Diagnosis/Problem 11/18/17 06:58 22yo EDC 11/29/2017 38 3/7wks, B+, R-NI, GBS neg. SROM bloody, FHT non reassuring Functional Status: Reports: Pain Controlled, Tolerating Diet, Ambulating, Urinating - Review of Systems General: Reports: No Symptoms HEENT: Reports: No Symptoms Pulmonary: Reports: No Symptoms Cardiovascular: Reports: No Symptoms Gastrointestinal: Reports: No Symptoms Genitourinary: Reports: No Symptoms Musculoskeletal: Reports: No Symptoms Skin: Reports: No Symptoms Neurological: Reports: No Symptoms Psychiatric: Reports: No Symptoms - Patient Data Vitals - Most Recent: Last Vital Signs Temp 36.8 C 11/20/17 03:52 Pulse 77 11/20/17 03:52 Resp 18 11/20/17 03:52 BP 109/68 11/20/17 03:52 Pulse Ox 97 11/20/17 03:52 Weight - Most Recent: 89.386 kg Med Orders - Current: Current Medications Bisacodyl (Dulcolax) 10 mg RECTAL ONETIME PRN PRN Reason: Constipation Butorphanol Tartrate (Stadol) 1 mg IVPUSH Q1H PRN PRN Reason: Pain Carboprost Tromethamine (Hemabate Ds) 250 mcg IM ASDIRECTED PRN PRN Reason: Post Hemorrhage Diphenhydramine HCl (Benadryl) 25 mg IVPUSH Q6H PRN PRN Reason: Itching or Nausea Docusate Sodium (Colace) 100 mg PO BID [facility] Last Admin: 11/20/17 00:26 Dose: 100 mg Emollient Ointment (Lansinoh Hpa) 0 gm TOP ASDIRECTED PRN PRN Reason: Sore Nipples Tranexamic Acid 1,000 mg/ (Sodium Chloride) 110 mls @ 660 mls/hr IV ONETIME PRN PRN Reason: Bleeding Lactated Ringer's (Ringers, Lactated) 1,000 mls @ 150 mls/hr IV ASDIRECTED [facility] Last Admin: 11/18/17 07:43 Dose: 999 mls/hr Oxytocin/Sodium Chloride (Oxytocin 30 Unit/500 Ml-Ns) 30 unit in 500 mls @ 999 mls/hr IV TITRATE [facility] Oxytocin/Sodium Chloride (Oxytocin 30 Unit/500 Ml-Ns) 30 unit in 500 mls @ 250 mls/hr IV TITRATE [facility] Lactated Ringer's (Ringers, Lactated) 1,000 mls @ 500 mls/hr IV BOLUS [facility] Last Admin: 11/18/17 08:10 Dose: 999 mls/hr Lactated Ringer's (Ringers, Lactated) 1,000 mls @ 125 mls/hr IV ASDIRECTED [facility] Last Admin: 11/18/17 15:04 Dose: 125 mls/hr Ibuprofen (Motrin) 800 mg PO Q8H PRN PRN Reason: mild pain or fever Last Admin: 11/20/17 02:46 Dose: 800 mg Lidocaine HCl (Xylocaine 1%) 50 ml INJECT ONETIME PRN PRN Reason: Laceration repair Methylergonovine Maleate (Methergine) 0.2 mg IM ASDIRECTED PRN PRN Reason: Post Hemorrhage Misoprostol (Cytotec) 200 mcg PO ONETIME PRN PRN Reason: Post Hemorrhage Nalbuphine HCl (Nubain) 10 mg IVPUSH Q1H PRN PRN Reason: Pain (severe 7-10) Ondansetron HCl (Zofran) 4 mg IV Q4H PRN PRN Reason: Nausea/Vomiting Last Admin: 11/18/17 16:25 Dose: 4 mg Oxycodone/Acetaminophen (Percocet 325-5 Mg) 1 tab PO Q4H PRN PRN Reason: Pain (moderate 4-6) Oxycodone/Acetaminophen (Percocet 325-5 Mg) 2 tab PO Q4H PRN PRN Reason: Pain (moderate 4-6) Last Admin: 11/19/17 21:30 Dose: 2 tab Sodium Chloride (Saline Flush) 10 ml FLUSH ASDIRECTED PRN PRN Reason: Keep Vein Open Sodium Chloride (Saline Flush) 2.5 ml FLUSH ASDIRECTED PRN PRN Reason: Keep Vein Open Sterile Water (Sterile Water For Irrigation) 1,000 ml IRR ASDIRECTED PRN PRN Reason: delivery Discontinued Medications Bupivacaine HCl (Sensorcaine-Mpf 0.5%) Confirm Administered Dose 20 ml .ROUTE .STK-MED ONE Stop: 11/18/17 08:09 Cefazolin Sodium (Ancef) Confirm Administered Dose 2 gm .ROUTE .STK-MED ONE Stop: 11/18/17 08:28 Diphenhydramine HCl (Benadryl) 25 mg IVPUSH Q4H PRN PRN Reason: Itching Stop: 11/19/17 09:35 Ephedrine Sulfate (Ephedrine Sulfate) Confirm Administered Dose 50 mg .ROUTE .STK-MED ONE Stop: 11/18/17 08:49 Fentanyl (Sublimaze) Confirm Administered Dose 100 mcg .ROUTE .STK-MED ONE Stop: 11/18/17 08:50 Fentanyl (Sublimaze) Confirm Administered Dose 100 mcg .ROUTE .STK-MED ONE Stop: 11/18/17 08:56 Fentanyl/Bupivacaine HCl (Gpbxpdns-Guhqk-Mh 2 Mcg/Ml-0.125%) Confirm Administered Dose 100 mls @ as directed EP .STK-MED ONE Stop: 11/18/17 07:31 Cefazolin Sodium/Dextrose 1 gm (/ Premix) 50 mls @ 100 mls/hr IV ONETIME ONE Stop: 11/18/17 08:52 Sodium Chloride (Normal Saline) Confirm Administered Dose 20 mls @ as directed .ROUTE .STK-MED ONE Stop: 11/18/17 08:28 Acetaminophen (Ofirmev) Confirm Administered Dose 100 mls @ as directed IV .STK- MED ONE Stop: 11/18/17 09:04 Ketorolac Tromethamine (Toradol) 30 mg IVPUSH Q6H MAXIMINO Stop: 11/19/17 09:16 Last Admin: 11/19/17 10:07 Dose: 30 mg Morphine Sulfate (Duramorph Pf) Confirm Administered Dose 1 mg .ROUTE .STK-MED ONE Stop: 11/18/17 08:42 Nalbuphine HCl (Nubain) 5 mg IVPUSH Q3H PRN PRN Reason: Pruritis Stop: 11/19/17 09:35 Naloxone HCl (Narcan) 0.1 mg IVPUSH ONETIME PRN PRN Reason: Respiratory Depression Stop: 11/19/17 09:35 Octyl Cyanoacrylate (Dermabond Advance) Confirm Administered Dose 1 applic .ROUTE .STK-MED ONE Stop: 11/18/17 09:11 Ondansetron HCl (Zofran) Confirm Administered Dose 4 mg .ROUTE .STK-MED ONE Stop: 11/18/17 08:32 Oxytocin (Pitocin) Confirm Administered Dose 20 unit .ROUTE .STK-MED ONE Stop: 11/18/17 08:30 - Exam General: Reports: Alert, Oriented, Cooperative, No Acute Distress Lungs: Reports: Clear to Auscultation, Normal Respiratory Effort Cardiovascular: Reports: Regular Rate, Regular Rhythm, No Murmurs GI/Abdominal Exam: Soft, Non-Tender (Female) Exam: Vaginal Bleeding Rectal (Female) Exam: Deferred Back Exam: Reports: Normal Inspection, Full Range of Motion Extremities: Normal Inspection, Normal Range of Motion, Non-Tender, Normal Capillary Refill, Pedal Edema Skin: Reports: Warm, Dry, Intact Wound/Incisions: Reports: Healing Well, No Drainage Neurological: Reports: No New Focal Deficit, Normal Speech, Normal Tone, Strength Equal Bilateral Psy/Mental Status: Reports: Alert, Normal Affect, Normal Mood
--- NOTE | 2017-11-20 08:30 | OR ---
SURGEON: Evaristo Landon MD DATE OF PROCEDURE: 11/18/2017 PREOPERATIVE DIAGNOSIS: Intrauterine 38+ weeks in active labor and then reassuring heart rate category 2, excessive vaginal bleeding, suspecting abruption. POSTOPERATIVE DIAGNOSIS: Intrauterine 38+ weeks in active labor and then reassuring heart rate category 2, excessive vaginal bleeding, suspecting abruption. OPERATION PERFORMED: Primary low-transverse section. SMALL PACKAGE AND BUNDLE SORTER CLERK: Mimi Cole CNM ANESTHESIA: Travon Parra and Salomon Talbot M.D. DEFENSE TRAVEL ADMINISTRATOR: Dr. Holman ESTIMATED BLOOD LOSS: 700 mL. COMPLICATIONS: None. FINDING: Male fetus, score reported to be 8 and 9. The weight is not available. INDICATION FOR SURGERY: This patient is 22. She is primigravida. She is followed in our office primarily by our nurse anime artist. The patient is presented to Labor and Delivery in active labor with the strong contractions and she was 2 to 3 cm. She had excessive vaginal bleeding, and she had severe abdominal pain, and heart rate was category II. The patient with deep deceleration suspecting possible abruption. The patient is remote from delivery. Decision is made to do a primary low-transverse section. PROCEDURE IN DETAIL: The patient was brought to the OR, properly identified. After adequate level of epidural anesthesia with a Mirza catheter in the bladder. The patient was prepped and draped in sterile fashion as usual. The patient properly identified, and time-out is taken, and low transverse Pfannenstiel skin incision was done. Dmitri fascia and rectus fascia were opened in direction of the incision. The 2 recti muscles were . Peritoneal cavity was entered. Bladder flap was raised in the usual manner pushing the bladder away from the lower uterine segment. Low transverse uterine incision was done and extended manually in the hand and fetus was in the vertex position. It is noted that once we entered the intrauterine cavity, copious amount of blood and blood clot mixed with amniotic fluid is noted, so then I believe the patient is probably having some abruption is confirmed. Once the fetus is delivered, and it is cried immediately, then handed to Dr. Holman, the pulmonologist, responsible for resuscitation, and score reported to be 8 and 9. The placenta delivered spontaneous, complete, and intact and then repair of the lower uterine segment was done with 2-0 Vicryl continuous interlocking in 2 layers. Reperitonealization done with 3-0 Vicryl continuous, and the peritoneal cavity closed with 3-0 after being evacuated completely from all blood and blood clot then closed with 3-0 Vicryl continuous. Rectus fascia was closed with #1 PDS single strand continuous. Dmitri fascia with 3-0 Vicryl continuous. The skin was closed in the subcuticular fashion by Mimi Cole. Instrument and sponge count was correct. The patient tolerated the procedure well, went to recovery room in stable general condition. ANIRUDH MORGAN /[id number]
== END 2017-11-20 12:50 | disposition home or self-care (01) | DRG 766 ==
LOC: MW.OBCHECK 06:11 → MW.OB 06:13 → MW.OBCHECK 06:39 → MW.OB 06:39 → OBSVTOIN 08:49 → MW.OB 12:25
PROVIDERS: ADMIT Obstetrics & Gynecology; ATTEND Obstetrics & Gynecology
PROC: 10D00Z1 Extraction of Products of Conception, Low, Open Approach (ICD-10-PCS; principal; 2017-11-18)
DX: O45.93 Premature separation of placenta, unspecified, third trimester (principal); O76 Abnormality in fetal heart rate and rhythm complicating labor and delivery; Z3A.38 38 weeks gestation of pregnancy; Z37.0 Single live birth
CPT/HCPCS: 36415; 51702; 59025; 85014; 85018; 85027; A9270-GY; J0131; J0690; J1885; J2274; J2405; J2590; J3010; J7120

== ENCOUNTER 2021-01-14 16:50 | Inpatient (IN) | payer BC ==
[2021-01-14] MEDS ORDERED: Sodium Chloride 0.9% 20 ML SDV FLUSH PRN (18:41)
[2021-01-14] MEDS ORDERED: Misoprostol 200 MCG Tab PO PRN (18:41)
[2021-01-14] MEDS ORDERED: Carboprost Tromethamine 250 MCG/1 ML Amp IM PRN (18:41)
[2021-01-14] MEDS ORDERED: Methylergonovine 0.2 MG/1 ML Amp IM PRN (18:41)
[2021-01-14] MEDS ORDERED: Butorphanol 1 MG/ML SDV IVPUSH PRN (18:41)
[2021-01-14] MEDS ORDERED: Water For Irrigation,Sterile 1,000 ML Container IRR PRN (18:41)
[2021-01-14] MEDS ORDERED: Tranexamic Acid 1,000 MG in Sodium Chloride 0.9% 100 ML IV PRN (18:41)
[2021-01-14] MEDS ORDERED: Lidocaine 1% 50 ML MDV INJECT PRN (18:41)
[2021-01-14] MEDS ORDERED: Sodium Chloride 0.9% 2.5 ML Syringe FLUSH PRN (18:41)
[2021-01-14] MEDS ORDERED: Sodium Chloride 0.9% 10 ML Syringe FLUSH PRN (18:41)
[2021-01-14] MEDS ORDERED: Nalbuphine 10 MG/1 ML Vial IVPUSH PRN (18:41)
[2021-01-14] MEDS ORDERED: Oxytocin/0.9 % Sodium Chloride 30 UNIT/500 ML BAG IV SCH (18:45)
[2021-01-14] MEDS ORDERED: Ondansetron 4 MG/2 ML SDV ONE (19:02)
[2021-01-14] MEDS: Lactated Ringers 1,000 ML IV SCH ×2 (19:15→21:44)
[2021-01-14] MEDS ORDERED: Ropivacaine HCl/PF 200 ML ONE (19:36)
--- NOTE | 2021-01-14 19:50 | PCM.POSTAN ---
POST ANESTHESIA ASSESSMENT - MENTAL STATUS Mental Status: Alert, Oriented - RESPIRATORY Respiratory Status: Respiratory Rate WNL, Airway Patent, O2 Saturation Stable - CARDIOVASCULAR CV Status: Pulse Rate WNL, Blood Pressure Stable - GASTROINTESTINAL GI Status: No Symptoms - POST OP HYDRATION Hydration Status: Adequate & Stable
--- NOTE | 2021-01-14 19:50 | PCM.PREANE ---
Preanesthetic Assessment - Anesthesia/Transfusion/Family Hx Anesthesia History: Prior Anesthesia Without Reaction Transfusion History: No Prior Transfusion(s) - Review of Systems General: No Symptoms Pulmonary: No Symptoms Cardiovascular: No Symptoms Gastrointestinal: No Symptoms Neurological: No Symptoms Other: Reports: None - Physical Assessment NPO Status Date: 01/14/21 NPO Status Time: 00:00 Height: 5 ft 10 in Weight: 209 lb ASA Class: 2 Mental Status: Alert & Oriented x3 Airway Class: Mallampati = 2 Dentition: Reports: Normal Dentition Thyro-Mental Finger Breadths: 3 Mouth Opening Finger Breadths: 3 ROM/Head Extension: Full Lungs: Clear to Auscultation, Normal Respiratory Effort Cardiovascular: Regular Rate, Regular Rhythm - Lab Values: Laboratory Last Values WBC 15.46 K/uL (4.0-11.0) H 01/14/21 18:30 RBC 4.35 M/uL (4.30-5.90) 01/14/21 18:30 Hgb 12.9 g/dL (12.0-16.0) 01/14/21 18:30 Hct 36.4 % (36.0-46.0) 01/14/21 18:30 MCV 83.7 fL (80.0-98.0) 01/14/21 18:30 MCH 29.7 pg (27.0-32.0) 01/14/21 18:30 MCHC 35.4 g/dL (31.0-37.0) 01/14/21 18:30 RDW Std Deviation 37.8 fl (28.0-62.0) 01/14/21 18:30 RDW Coeff of Maisha 12 % (11.0-15.0) 01/14/21 18:30 Plt Count 238 K/uL (150-400) 01/14/21 18:30 MPV 11.30 fL (7.40-12.00) 01/14/21 18:30 Nucleated RBC % 0.0 /100WBC 01/14/21 18:30 Nucleated RBCs # 0 K/uL 01/14/21 18:30 Blood Type B POSITIVE 01/14/21 18:30 Antibody Screen NEGATIVE 01/14/21 18:30 - Allergies Allergies/Adverse Reactions: Allergies Allergy/AdvReac Type Severity Reaction Status Date / Time No Known Allergies Allergy Verified 01/14/21 08:57 - Blood Blood Available: Yes - Acknowledgements Anesthesia Type Planned: Epidural Pt an Appropriate Candidate for the Planned Anesthesia: Yes Alternatives and Risks of Anesthesia Discussed w Pt/Guardian: Yes Pt/Guardian Understands and Agrees with Anesthesia Plan: Yes PreAnesthesia Questionnaire HEENT History: Reports: None Cardiovascular History: Reports: None Respiratory History: Reports: None Gastrointestinal History: Reports: GERD Genitourinary History: Reports: None BOOK MENDER History: Reports: Musculoskeletal History: Reports: None Neurological History: Reports: None Psychiatric History: Reports: None Endocrine/Metabolic History: Reports: Hypothyroidism, Other (See Below) Other Endocrine/Metabolic History: Reports treated for Graves disease last year Hematologic History: Reports: None Immunologic History: Reports: None Oncologic (Cancer) History: Reports: None Dermatologic History: Reports: Other (See Below) Other Dermatologic History: foot cyst - Infectious Disease History Infectious Disease History: Reports: None - Past Surgical History GI Surgical History: Reports: Appendectomy - HOME MEDS Home Medications: Home Meds Ondansetron [Zofran ODT] 4 mg PO Q6H PRN #7 tab.dis 04/15/17 [Rx] Pnv No.95/Ferrous Fum/Folic AC [ Multivitamin Tablet] 1 each PO DAILY 04/15/17 [History] - CURRENT (IN HOUSE) MEDS Current Meds: Current Medications Butorphanol Tartrate (Butorphanol 1 Mg/Ml Sdv) 1 mg IVPUSH Q1H PRN PRN Reason: Pain (severe 7-10) Carboprost Tromethamine (Carboprost Tromethamine 250 Mcg/1 Ml Amp) 250 mcg IM ASDIRECTED PRN PRN Reason: Post Hemorrhage Lactated Ringer's (Ringers, Lactated) 1,000 mls @ 150 mls/hr IV ASDIRECTED MAXIMINO Oxytocin/Sodium Chloride (Oxytocin 30 Unit In Ns 0.9% 500 Ml Premix) 30 unit in 500 mls @ 999 mls/hr IV TITRATE MAXIMINO Tranexamic Acid 1,000 mg/ (Sodium Chloride) 110 mls @ 660 mls/hr IV ONETIME PRN PRN Reason: Bleeding Lidocaine HCl (Lidocaine 1% 50 Ml Mdv) 50 ml INJECT ONETIME PRN PRN Reason: Laceration repair Methylergonovine Maleate (Methylergonovine 0.2 Mg/1 Ml Amp) 0.2 mg IM ASDIRECTED PRN PRN Reason: Post Hemorrhage Misoprostol (Misoprostol 200 Mcg Tab) 200 mcg PO ONETIME PRN PRN Reason: Post Hemorrhage Nalbuphine HCl (Nalbuphine 10 Mg/1 Ml Vial) 10 mg IVPUSH Q1H PRN PRN Reason: Pain (severe 7-10) Sodium Chloride (Sodium Chloride 0.9% 10 Ml Syringe) 10 ml FLUSH ASDIRECTED PRN PRN Reason: Keep Vein Open Sodium Chloride (Sodium Chloride 0.9% 2.5 Ml Syringe) 2.5 ml FLUSH ASDIRECTED PRN PRN Reason: Keep Vein Open Sodium Chloride (Sodium Chloride 0.9% 20 Ml Sdv) 10 ml FLUSH ASDIRECTED PRN PRN Reason: IV Use Sterile Water (Water For Irrigation,Sterile 1,000 Ml Container) 1,000 ml IRR ASDIRECTED PRN PRN Reason: delivery Discontinued Medications Ropivacaine (Naropin 0.2%) Confirm Administered Dose 200 mls @ as directed .ROUTE .STK-MED ONE Stop: 01/14/21 19:37 Ondansetron HCl (Ondansetron 4 Mg/2 Ml Sdv) Confirm Administered Dose 4 mg .ROUTE .STK-MED ONE Stop: 01/14/21 19:03 Last Admin: 01/14/21 19:28 Dose: 4 mg Documented by:
[2021-01-14] MEDS ORDERED: ePHEDrine 50 MG/ML SDV IVPUSH PRN ×2 (19:53)
--- NOTE | 2021-01-14 19:53 | PCM.SN.2 ---
- Pre-Procedure Checklist Attending Provider Aware: Yes Chart Reviewed: Yes Consent Signed: Yes Labs Reviewed: Yes VS/FHR Reviewed: Yes Patient Identification Confirmation Method: Reports: Chart Visual, ID Band Visual, Verbal Patient Pt an Appropriate Candidate for the Planned Anesthesia: Yes Alternatives and Risks of Anesthesia Discussed w Pt/Guardian: Yes - Procedure Procedure Start Date: 01/14/21 Procedure Start Time: 19:[address]: Reports: Blood Pressure, Heart Rate, SPO2 Functional IV: Yes Safety Measures: Reports: Patient Identified, Procedure Verified, Site Verified, Procedure Time Out Patient Position: Reports: Sitting Prep: Reports: Alcohol x3, Betadine x3 Local Anesthetic: Reports: Intradermal Wheal w Lidocaine 1% Regional Placement Level: Reports: L2-3 Needle: Reports: 17 g Touhy Approach: Reports: Midline Technique: Reports: LAN Glass Syringe Parasthesia: Reports: None Fluid Obtained: Reports: None Test Dose Medication: Reports: Lidocaine 1.5% w Epinephrine 1:200,000 Test Dose Response: Reports: Negative Continuous Infusion Start Time: 19:35 Continuous Infusion Medication: 0.2% Naropin Continuous Infusion Rate: 18 Continuous Infusion PCS Bolus Option: 4 Continuous Infusion Lockout Dose (cc/hr): 20 Patient Position Post Placement: Reports: Supline/MIGUEL VS and FHR Monitored in Unit Post Placement: Yes Procedure End Date: 01/14/21 Procedure End Time: 20:25
[2021-01-14] MEDS ORDERED: Ropivacaine/PF 400 MG/200 ML PCA EPIDUR SCH (20:00)
--- NOTE | 2021-01-15 01:22 | PCM.LDHP ---
L&D History of Present Illness - General Date of Service: 01/14/21 Admit Problem/Dx: Patient Status Order with Admit Dx/Problem 01/14/21 16:54 Patient Status [ADT] Routine Admission Diagnosis/Problem Admission Diagnosis/Problem Source of Information: Patient History Limitations: Reports: No Limitations - History of Present Illness Improves with: Reports: None Worsens with: Reports: None Associated Symptoms: Reports: N - Related Data Allergies/Adverse Reactions: Allergies Allergy/AdvReac Type Severity Reaction Status Date / Time No Known Allergies Allergy Verified 01/14/21 08:57 Home Medications: Home Meds Ondansetron [Zofran ODT] 4 mg PO Q6H PRN #7 tab.dis 04/15/17 [Rx] Pnv No.95/Ferrous Fum/Folic AC [ Multivitamin Tablet] 1 each PO DAILY 04/15/17 [History] Past Medical History - Past Health History Medical/Surgical History: Denies Medical/Surgical History HEENT History: Reports: None Cardiovascular History: Reports: None Respiratory History: Reports: None Gastrointestinal History: Reports: GERD Genitourinary History: Reports: None BENCH CHEMIST History: Reports: Other OB/BYN History: c/s 2017 Musculoskeletal History: Reports: None Neurological History: Reports: None Psychiatric History: Reports: None Endocrine/Metabolic History: Reports: Hypothyroidism, Other (See Below) Other Endocrine/Metabolic History: Reports treated for Graves disease last year Insulin Pump Model and Mail Manager: n/a Hematologic History: Reports: None Immunologic History: Reports: None Oncologic (Cancer) History: Reports: None Dermatologic History: Reports: Other (See Below) Other Dermatologic History: foot cyst - Infectious Disease History Infectious Disease History: Reports: None - Past Surgical History GI Surgical History: Reports: Appendectomy Social & Family History - Family History Family Medical History: No Pertinent Family History HEENT: Reports: None Cardiac: Reports: None - Tobacco Use Tobacco Use Status *Q: Never Tobacco User Second Hand Smoke Exposure: No - Caffeine Use Caffeine Use: Reports: Coffee, Soda, Tea - Recreational Drug Use Recreational Drug Use: No H&P Review of Systems - Review of Systems: Review Of Systems: See Below General: Reports: No Symptoms HEENT: Reports: No Symptoms Pulmonary: Reports: No Symptoms Cardiovascular: Reports: No Symptoms Gastrointestinal: Reports: No Symptoms Genitourinary: Reports: No Symptoms Musculoskeletal: Reports: No Symptoms Skin: Reports: No Symptoms Psychiatric: Reports: No Symptoms Neurological: Reports: No Symptoms Hematologic/Lymphatic: Reports: No Symptoms Immunologic: Reports: No Symptoms L&D Exam - Exam Exam: See Below - Vital Signs Weight: 94.801 kg - OB Specific Contraction Intensity: Moderate Movement: Active Heart Tones: Present Presentation: Vertex - Mathews Score Mathews Score Cervix Position: Anterior Mathews Score Consistency: Soft Mathews Score Effacement: >80% Mathews Score Dilation: 3-4 cm Mathews Score 's Station: -2 Mathews Score Total: 10 - Exam General: Alert, Oriented HEENT: PERRLA, Conjunctiva Clear, EACs Clear, EOMI, Hearing Intact, Mucosa Moist & [place], Nares Patent, Normal Nasal Septum, Posterior Pharynx Clear, TMs Clear Neck: Supple, Trachea Midline Lungs: Clear to Auscultation, Normal Respiratory Effort Cardiovascular: Regular Rate, Regular Rhythm GI/Abdominal Exam: Normal Bowel Sounds, Soft, Non-Tender, No Organomegaly, No Distention, No Abnormal Bruit, No Mass, Pelvis Stable Rectal Exam: Normal Exam, Normal Rectal Tone Genitourinary: Normal external exam, Normal bimanual exam, Normal speculum exam Back Exam: Normal Inspection, Full Range of Motion Extremities: Normal Inspection, Normal Range of Motion, Non-Tender, No Pedal Edema, Normal Capillary Refill Skin: Warm, Dry, Intact Neurological: Cranial Nerves Intact, Reflexes Equal Bilateral Psychiatric: Alert, Normal Affect, Normal Mood - Patient Data Lab Results Last 24 hrs: Laboratory Results - last 24 hr 01/14/21 01/14/21 01/14/21 Range/Units 18:30 18:30 18:33 WBC 15.46 H (4.0-11.0) K/uL RBC 4.35 (4.30-5.90) M/uL Hgb 12.9 (12.0-16.0) g/dL Hct 36.4 (36.0-46.0) % MCV 83.7 (80.0-98.0) fL MCH 29.7 (27.0-32.0) pg MCHC 35.4 (31.0-37.0) g/dL RDW Std Deviation 37.8 (28.0-62.0) fl RDW Coeff of Maisha 12 (11.0-15.0) % Plt Count 238 (150-400) K/uL MPV 11.30 (7.40-12.00) fL Nucleated RBC % 0.0 /100WBC Nucleated RBCs # 0 K/uL SARS-CoV-2 RNA (АННА) NEGATIVE (NEGATIVE) Blood Type B POSITIVE Antibody Screen NEGATIVE Result Diagrams: 01/14/21 18:30 Problem List Initiated/Reviewed/Updated: Yes Orders Last 24hrs: Active Orders 24 hr Category Date Time Status Patient Status [ADT] Routine ADT 01/14/21 16:54 Active Communication Order [RC] PRN Care 01/14/21 19:53 Active Heart Tones [RC] CONTINUOUS Care 01/14/21 18:41 Active Non Stress Test [RC] PER UNIT ROUTINE Care 01/14/21 16:54 Active May Shower [RC] ASDIRECTED Care 01/14/21 18:41 Active Notify Provider [RC] PRN Care 01/14/21 18:41 Active Up ad Marysol [RC] ASDIRECTED Care 01/14/21 16:54 Active Vaginal Exam [RC] Click to Edit Care 01/14/21 16:54 Active Vaginal Exam [RC] PRN Care 01/14/21 18:41 Active Vital Signs [RC] PER UNIT ROUTINE Care 01/14/21 16:54 Active RPR (SYPHILIS SERO) W/ RFLX [REF] Routine Lab 01/14/21 18:30 Received Butorphanol [Stadol] Med 01/14/21 18:41 Active 1 mg IVPUSH Q1H PRN Carboprost Tromethamine [Hemabate DS] Med 01/14/21 18:41 Active 250 mcg IM ASDIRECTED PRN Lactated Ringers [Ringers, Lactated] 1,000 ml Med 01/14/21 18:45 Active IV ASDIRECTED Lidocaine 1% [Xylocaine 1%] Med 01/14/21 18:41 Active 50 ml INJECT ONETIME PRN Methylergonovine [Methergine] Med 01/14/21 18:41 Active 0.2 mg IM ASDIRECTED PRN Nalbuphine [Nubain] Med 01/14/21 18:41 Active 10 mg IVPUSH Q1H PRN Oxytocin/0.9 % Sodium Chloride [Oxytocin 30 Unit in NS Med 01/14/21 18:45 Active 0.9% 500 ML Premix] 30 unit in 500 ml IV TITRATE Phenylephrine HCl In 0.9% NaCl [Phenylephrine 1 MG/10 Med 01/14/21 19:53 Active ML-NS] 0.1 mg IVPUSH Q1M PRN Ropivacaine HCl/PF [Ropivacaine 0.2% TAVERN OPERATOR 400 MG in 200 Med 01/14/21 20:00 Active ML] 400 mg EPIDUR ASDIRECTED Sodium Chloride 0.9% [Normal Saline] Med 01/14/21 18:41 Active 10 ml FLUSH ASDIRECTED PRN Sodium Chloride 0.9% [Saline Flush] Med 01/14/21 18:41 Active 10 ml FLUSH ASDIRECTED PRN Sodium Chloride 0.9% [Saline Flush] Med 01/14/21 18:41 Active 2.5 ml FLUSH ASDIRECTED PRN Tranexamic Acid [Cyklokapron] 1,000 mg Med 01/14/21 18:41 Active Sodium Chloride 0.9% [Normal Saline] 100 ml IV ONETIME Water For Irrigation,Sterile [Sterile Water for Med 01/14/21 18:41 Active Irrigation] 1,000 ml IRR ASDIRECTED PRN ePHEDrine [ePHEDrine sulfate] Med 01/14/21 19:53 Active 10 mg IVPUSH Q1M PRN ePHEDrine [ePHEDrine sulfate] Med 01/14/21 19:53 Active 10 mg IVPUSH Q5M PRN miSOPROStoL [Cytotec] Med 01/14/21 18:41 Active 200 mcg PO ONETIME PRN Scalp Electrode [WOMSER] Per Unit Routine Oth 01/14/21 18:41 Ordered Peripheral IV Insertion Adult [OM.PC] Routine Oth 01/14/21 18:41 Ordered Resuscitation Status Routine Resus Stat 01/14/21 16:54 Ordered Medication Orders Butorphanol Tartrate (Butorphanol 1 Mg/Ml Sdv) 1 mg IVPUSH Q1H PRN PRN Reason: Pain (severe 7-10) Carboprost Tromethamine (Carboprost Tromethamine 250 Mcg/1 Ml Amp) 250 mcg IM ASDIRECTED PRN PRN Reason: Post Hemorrhage Ephedrine Sulfate (Ephedrine 50 Mg/Ml Sdv) 10 mg IVPUSH Q1M PRN PRN Reason: Hypotension Ephedrine Sulfate (Ephedrine 50 Mg/Ml Sdv) 10 mg IVPUSH Q5M PRN PRN Reason: Hypotension Lactated Ringer's (Ringers, Lactated) 1,000 mls @ 150 mls/hr IV ASDIRECTED [facility] Last Admin: 01/14/21 21:44 Dose: 150 mls/hr Documented by: Infusion: 01/14/21 21:44 Dose: 150 mls/hr Documented by: Admin: 01/14/21 19:15 Dose: 150 mls/hr Documented by: JOHN Oxytocin/Sodium Chloride (Oxytocin 30 Unit In Ns 0.9% 500 Ml Premix) 30 unit in 500 mls @ 999 mls/hr IV TITRATE [facility] Tranexamic Acid 1,000 mg/ (Sodium Chloride) 110 mls @ 660 mls/hr IV ONETIME PRN PRN Reason: Bleeding Lidocaine HCl (Lidocaine 1% 50 Ml Mdv) 50 ml INJECT ONETIME PRN PRN Reason: Laceration repair Methylergonovine Maleate (Methylergonovine 0.2 Mg/1 Ml Amp) 0.2 mg IM ASDIR ECTED PRN PRN Reason: Post Hemorrhage Miscellaneous Medication (Phenylephrine Hcl In 0.9% Nacl 1 Mg/10 Ml Syringe) 0.1 mg IVPUSH Q1M PRN PRN Reason: Hypotension Misoprostol (Misoprostol 200 Mcg Tab) 200 mcg PO ONETIME PRN PRN Reason: Post Hemorrhage Nalbuphine HCl (Nalbuphine 10 Mg/1 Ml Vial) 10 mg IVPUSH Q1H PRN PRN Reason: Pain (severe 7-10) Ropivacaine (Ropivacaine/Pf 400 Mg/200 Ml Bag Inspector) 400 mg EPIDUR ASDIRECTED [facility] Sodium Chloride (Sodium Chloride 0.9% 10 Ml Syringe) 10 ml FLUSH ASDIRECTED PRN PRN Reason: Keep Vein Open Sodium Chloride (Sodium Chloride 0.9% 2.5 Ml Syringe) 2.5 ml FLUSH ASDIRECTED PRN PRN Reason: Keep Vein Open Sodium Chloride (Sodium Chloride 0.9% 20 Ml Sdv) 10 ml FLUSH ASDIRECTED PRN PRN Reason: IV Use Sterile Water (Water For Irrigation,Sterile 1,000 Ml Container) 1,000 ml IRR ASDIRECTED PRN PRN Reason: delivery Assessment/Plan Comment:: Termpregnancy. in labor. Pt to attempt VEBC.
[2021-01-15] MEDS ORDERED: Oxytocin 10 Units/1 ML SDV ONE (04:56)
[2021-01-15] MEDS ORDERED: Lanolin 100% Cream 7 GM Tube TOP PRN (05:00)
[2021-01-15] MEDS ORDERED: Acetaminophen 500 MG Tab PO PRN (05:00)
[2021-01-15] MEDS ORDERED: oxyCODONE 5 MG Tab PO PRN (05:00)
[2021-01-15] MEDS ORDERED: Ibuprofen 400 MG Tab PO PRN (05:00)
[2021-01-15] MEDS ORDERED: Benzocaine/Menthol 20%-0.5% Spray 78 GM Cannister TOP PRN (05:00)
[2021-01-15] MEDS ORDERED: Bisacodyl 10 MG Supp RECTAL PRN (05:00)
[2021-01-15] MEDS ORDERED: Witch Hazel Medicated Pads 40/Jar TOP PRN (05:00)
[2021-01-15] MEDS: Ibuprofen 800 MG Tab PO PRN ×3 (06:06→21:02)
--- NOTE | 2021-01-15 07:22 | PCM48HPAN ---
Post Anesthesia Note - EVALUATION WITHIN 48HRS OF ANESTHETIC Vital Signs in Normal Range: Yes Patient Participated in Evaluation: Yes Respiratory Function Stable: Yes Airway Patent: Yes Cardiovascular Function Stable: Yes Hydration Status Stable: Yes Pain Control Satisfactory: Yes Nausea and Vomiting Control Satisfactory: Yes Mental Status Recovered: Yes
[2021-01-15] MEDS: Acetaminophen 500 MG Tab PO PRN ×2 (09:19→13:42)
--- NOTE | 2021-01-15 12:48 | OR ---
SURGEON: Evaristo Landon MD DATE OF PROCEDURE: 01/15/2021 Ms. Madden is 25-year-old patient. She is 40 weeks . She is para 1-0- 0-1. She is status post section for breech presentation in her first . She is attempting in this , and after the patient signed appropriate consent and explanation of the procedure is done to her, she is admitted in active labor. At the time of admission, she was 4, complete vertex, and -3. The patient progressed initially rather slowly and her GBS status was negative. The patient had epidural anesthesia for labor analgesia and then she had an artificial rupture of the membrane when she was 8 cm, complete vertex, and -1 station. She after that progressed to complete complete and commenced pushing, and after pushing for 2 hours, she was able to accomplish normal spontaneous vaginal delivery of a male fetus in an occiput posterior position without any problem. The placenta delivered spontaneous, complete, and intact. The fetus cried immediately. score was 8 and 9, but the weight is not available at this time. The placenta delivered without any problem. There was no need for episiotomy, and there was no labial, perineal, or vaginal laceration. Estimated blood loss is 300 to 350 mL. heart rate was category 1 through the entire process of labor. ANIRUDH / CATHY /[id number]
[2021-01-15] MEDS: Docusate Sodium 100 MG Cap PO PRN (21:03)
[2021-01-16] MEDS: Ibuprofen 800 MG Tab PO PRN ×2 (06:11→17:45)
--- NOTE | 2021-01-16 10:53 | PCM.PNPP ---
- General Info Date of Service: 01/16/21 Functional Status: Reports: Pain Controlled - Review of Systems General: Reports: No Symptoms HEENT: Reports: No Symptoms Pulmonary: Reports: No Symptoms Cardiovascular: Reports: No Symptoms Gastrointestinal: Reports: No Symptoms Genitourinary: Reports: No Symptoms Musculoskeletal: Reports: No Symptoms Skin: Reports: No Symptoms Neurological: Reports: No Symptoms Psychiatric: Reports: No Symptoms - General Info Date of Service: 01/16/21 - Patient Data Vital Signs - Most Recent: Last Vital Signs Temp 36.1 C 01/16/21 04:35 Pulse 58 L 01/16/21 04:35 Resp 16 01/16/21 04:35 BP 109/69 01/16/21 04:35 Pulse Ox 95 01/16/21 04:35 Weight - Most Recent: 94.801 kg Lab Results - Last 24 Hours: Laboratory Results - last 24 hr 01/16/21 Range/Units 06:15 Hgb 11.9 L (12.0-16.0) g/dL Hct 34.5 L (36.0-46.0) % Med Orders - Current: Current Medications Acetaminophen (Acetaminophen 500 Mg Tab) 500 mg PO Q4H PRN PRN Reason: Pain (mild 1-3) Acetaminophen (Acetaminophen 500 Mg Tab) 1,000 mg PO Q4H PRN PRN Reason: Pain (mild 1-3) Last Admin: 01/15/21 13:42 Dose: 1,000 mg Documented by: Benzocaine/Menthol (Benzocaine/Menthol 20%-0.5% Reading 78 Gm Cannister) 78 gm TOP ASDIRECTED PRN PRN Reason: Perineal Comfort Measure Last Admin: 01/16/21 05:09 Dose: 1 can Documented by: Bisacodyl (Bisacodyl 10 Mg Supp) 10 mg RECTAL ONETIME PRN PRN Reason: Constipation Butorphanol Tartrate (Butorphanol 1 Mg/Ml Sdv) 1 mg IVPUSH Q1H PRN PRN Reason: Pain (severe 7-10) Carboprost Tromethamine (Carboprost Tromethamine 250 Mcg/1 Ml Amp) 250 mcg IM ASDIRECTED PRN PRN Reason: Post Hemorrhage Docusate Sodium (Docusate Sodium 100 Mg Cap) 100 mg PO Q12H PRN PRN Reason: Constipation Last Admin: 01/15/21 21:03 Dose: 100 mg Documented by: Emollient Ointment (Lanolin 100% Cream 7 Gm Tube) 0 gm TOP ASDIRECTED PRN PRN Reason: Sore Nipples Ephedrine Sulfate (Ephedrine 50 Mg/Ml Sdv) 10 mg IVPUSH Q1M PRN PRN Reason: Hypotension Ephedrine Sulfate (Ephedrine 50 Mg/Ml Sdv) 10 mg IVPUSH Q5M PRN PRN Reason: Hypotension Lactated Ringer's (Ringers, Lactated) 1,000 mls @ 150 mls/hr IV ASDIRECTED [facility] Last Admin: 01/14/21 21:44 Dose: 150 mls/hr Documented by: Oxytocin/Sodium Chloride (Oxytocin 30 Unit In Ns 0.9% 500 Ml Premix) 30 unit in 500 mls @ 999 mls/hr IV TITRATE [facility] Last Admin: 01/15/21 04:55 Dose: 999 mls/hr Documented by: Tranexamic Acid 1,000 mg/ (Sodium Chloride) 110 mls @ 660 mls/hr IV ONETIME PRN PRN Reason: Bleeding Ibuprofen (Ibuprofen 400 Mg Tab) 400 mg PO Q4H PRN PRN Reason: Pain (mild 1-3) Ibuprofen (Ibuprofen 800 Mg Tab) 800 mg PO Q6H PRN PRN Reason: Cramping Last Admin: 01/16/21 06:11 Dose: 800 mg Documented by: Lidocaine HCl (Lidocaine 1% 50 Ml Mdv) 50 ml INJECT ONETIME PRN PRN Reason: Laceration repair Methylergonovine Maleate (Methylergonovine 0.2 Mg/1 Ml Amp) 0.2 mg IM ASDIRECTED PRN PRN Reason: Post Hemorrhage Miscellaneous Medication (Phenylephrine Hcl In 0.9% Nacl 1 Mg/10 Ml Syringe) 0.1 mg IVPUSH Q1M PRN PRN Reason: Hypotension Misoprostol (Misoprostol 200 Mcg Tab) 200 mcg PO ONETIME PRN PRN Reason: Post Hemorrhage Nalbuphine HCl (Nalbuphine 10 Mg/1 Ml Vial) 10 mg IVPUSH Q1H PRN PRN Reason: Pain (severe 7-10) Oxycodone HCl (Oxycodone 5 Mg Tab) 5 mg PO Q2H PRN PRN Reason: Pain (severe 7-10) Ropivacaine (Ropivacaine/Pf 400 Mg/200 Ml Press Technician) 400 mg EPIDUR ASDIRECTED MAXIMINO Sodium Chloride (Sodium Chloride 0.9% 10 Ml Syringe) 10 ml FLUSH ASDIRECTED PRN PRN Reason: Keep Vein Open Sodium Chloride (Sodium Chloride 0.9% 2.5 Ml Syringe) 2.5 ml FLUSH ASDIRECTED PRN PRN Reason: Keep Vein Open Sodium Chloride (Sodium Chloride 0.9% 20 Ml Sdv) 10 ml FLUSH ASDIRECTED PRN PRN Reason: IV Use Sterile Water (Water For Irrigation,Sterile 1,000 Ml Container) 1,000 ml IRR ASDIRECTED PRN PRN Reason: delivery Witch Yuridia (Witch Yuridia Medicated Pads 40/Jar) 1 pad TOP ASDIRECTED PRN PRN Reason: comfort care Last Admin: 01/16/21 05:09 Dose: 1 can Documented by: Discontinued Medications Ropivacaine (Naropin 0.2%) Confirm Administered Dose 200 mls @ as directed .ROUTE .STK-MED ONE Stop: 01/14/21 19:37 Ondansetron HCl (Ondansetron 4 Mg/2 Ml Sdv) Confirm Administered Dose 4 mg .ROUTE .STK-MED ONE Stop: 01/14/21 19:03 Last Admin: 01/14/21 19:28 Dose: 4 mg Documented by: Oxytocin (Oxytocin 10 Units/1 Ml Sdv) Confirm Administered Dose 10 unit .ROUTE .STK-MED ONE Stop: 01/15/21 04:57 Last Admin: 01/15/21 04:59 Dose: 10 unit Documented by: - Infant Interaction Disposition, : in Room with Family Interaction: Holding Feeding: Attempted ; Nursed Fair/Poor Support Person: - Recovery Exam Fundal Tone: Firm Fundal Level: 1 Fingerbreadths Below Umbilicus Fundal Placement: Midline Lochia Amount: Scant Lochia Color: Rubra/Red Perineum Description: Intact, Minimal Bruising/Swelling, Edematous Episiotomy/Laceration: None Bladder Status: Voiding Urinary Elimination: Voided - Exam General: Alert, Oriented HEENT: Pupils Equal Neck: Supple Lungs: Clear to Auscultation, Normal Respiratory Effort Cardiovascular: Regular Rate, Regular Rhythm GI/Abdominal Exam: Normal Bowel Sounds, Soft, Non-Tender, No Organomegaly, No Distention, No Abnormal Bruit, No Mass, Pelvis Stable Extremities: Normal Inspection, Normal Range of Motion, Non-Tender, No Pedal Edema, Normal Capillary Refill Skin: Warm, Dry, Intact Wound/Incisions: Healing Well Neurological: No New Focal Deficit Psy/Mental Status: Alert, Normal Affect, Normal Mood - Problem List Review Problem List Initiated/Reviewed/Updated: Yes - Assessment Assessment:: S/P doing ok. - Plan Plan:: Termpregnancy. in labor. Pt to attempt VEBC.
[2021-01-16] MEDS: Acetaminophen 500 MG Tab PO PRN (13:33)
[2021-01-16] MEDS: Docusate Sodium 100 MG Cap PO PRN (13:33)
== END 2021-01-16 20:40 | disposition home or self-care (01) | DRG 560 ==
LOC: MW.OBCHECK 16:50 → MW.OB 16:54 → OBSVTOIN 01-15 04:50 → MW.OB 01-15 09:29
PROVIDERS: ADMIT Obstetrics & Gynecology; ATTEND Obstetrics & Gynecology
PROC: 10E0XZZ Delivery of Products of Conception, External Approach (ICD-10-PCS; principal; 2021-01-15)
PROC: 10907ZC Drainage of Amniotic Fluid, Therapeutic from Products of Conception, Via Natural or Artificial Opening (ICD-10-PCS; 2021-01-15)
PROC: 3E0R3BZ Introduction of Anesthetic Agent into Spinal Canal, Percutaneous Approach (ICD-10-PCS; 2021-01-15)
PROC: 00HU33Z Insertion of Infusion Device into Spinal Canal, Percutaneous Approach (ICD-10-PCS; 2021-01-15)
DX: O34.211 Maternal care for low transverse scar from previous cesarean delivery (principal); Z37.0 Single live birth; O99.62 Diseases of the digestive system complicating childbirth; K21.9 Gastro-esophageal reflux disease without esophagitis; O99.284 Endocrine, nutritional and metabolic diseases complicating childbirth; E03.9 Hypothyroidism, unspecified; Z20.822 Contact with and (suspected) exposure to COVID-19; Z90.49 Acquired absence of other specified parts of digestive tract; Z3A.40 40 weeks gestation of pregnancy
CPT/HCPCS: 01967; 36415; 51702; 59025; 59409; 85014; 85018; 85027; 86592; 86850; 86900; 86901; A9270-GY; J2405; J2590; J2795; J7120; U0002

== ENCOUNTER 2022-06-03 09:47 | Inpatient (IN) | payer OTHER ==
[2022-06-03] MEDS ORDERED: Lidocaine 1% 50 ML MDV INJECT PRN (10:08)
[2022-06-03] MEDS ORDERED: Water For Irrigation,Sterile 1,000 ML Container IRR PRN (10:08)
[2022-06-03] MEDS ORDERED: Misoprostol 200 MCG Tab PO PRN (10:08)
[2022-06-03] MEDS ORDERED: Sodium Chloride 0.9% 10 ML Syringe FLUSH PRN (10:08)
[2022-06-03] MEDS ORDERED: Ondansetron 4 MG/2 ML SDV IVPUSH PRN (10:08)
[2022-06-03] MEDS ORDERED: Sodium Chloride 0.9% 2.5 ML Syringe FLUSH PRN (10:08)
[2022-06-03] MEDS ORDERED: Butorphanol 1 MG/ML SDV IVPUSH PRN (10:08)
[2022-06-03] MEDS ORDERED: Tranexamic Acid 1,000 MG in Sodium Chloride 0.9% 100 ML IV PRN (10:08)
[2022-06-03] MEDS ORDERED: Carboprost Tromethamine 250 MCG/1 ML Amp IM PRN (10:08)
[2022-06-03] MEDS ORDERED: Methylergonovine 0.2 MG/1 ML Amp IM PRN (10:08)
[2022-06-03] MEDS ORDERED: Sodium Chloride 0.9% 20 ML SDV IV PRN (10:08)
[2022-06-03] MEDS ORDERED: Oxytocin/0.9 % Sodium Chloride 30 UNIT/500 ML BAG IV SCH (10:15)
[2022-06-03] MEDS ORDERED: Lactated Ringers 1,000 ML IV SCH (10:15)
[2022-06-03] MEDS ORDERED: Ropivacaine HCl/PF 400 MG in Premix Bag 1 BAG EPIDUR SCH (10:30)
[2022-06-03] MEDS ORDERED: ePHEDrine 50 MG/ML SDV IVPUSH PRN ×2 (10:30)
[2022-06-03] MEDS ORDERED: Phenylephrine HCl 0.5 MG/5 ML AMP IVPUSH PRN (10:30)
[2022-06-03] MEDS ORDERED: Dexmedetomidine 200 MCG/2 ML SDV ONE (10:44)
[2022-06-03] MEDS ORDERED: Lidocaine 2% with EPINEPHrine 1:200,000 20 ML SDV ONE (10:44)
[2022-06-03] MEDS ORDERED: fentaNYL 100 MCG/2 ML SDV ONE (11:26)
[2022-06-03] MEDS ORDERED: Bupivacaine 0.5% 30 ML SDV ONE (11:30)
[2022-06-03] MEDS ORDERED: Ibuprofen 800 MG Tab PO PRN (17:59)
[2022-06-03] MEDS ORDERED: Benzocaine/Menthol 20%-0.5% Spray 78 GM Cannister TOP PRN (17:59)
[2022-06-03] MEDS ORDERED: Bisacodyl 10 MG Supp RECTAL PRN (17:59)
[2022-06-03] MEDS ORDERED: Acetaminophen 500 MG Tab PO PRN ×2 (17:59)
[2022-06-03] MEDS ORDERED: Docusate Sodium 100 MG Cap PO PRN (17:59)
[2022-06-03] MEDS ORDERED: Witch Hazel Medicated Pads 40/Jar TOP PRN (17:59)
[2022-06-03] MEDS ORDERED: Ibuprofen 400 MG Tab PO PRN (17:59)
[2022-06-03] MEDS ORDERED: Lanolin 100% Cream 7 GM Tube TOP PRN (17:59)
== END 2022-06-04 17:45 | disposition home or self-care (01) | DRG 807 ==
LOC: MW.OBCHECK 09:47 → MW.OB 09:49 → MW.OBCHECK 10:41 → OBSVTOIN 11:41 → MW.OB 18:18
PROVIDERS: ADMIT Obstetrics & Gynecology Obstetrics; ATTEND Obstetrics & Gynecology Obstetrics
PROC: 10E0XZZ Delivery of Products of Conception, External Approach (ICD-10-PCS; principal; 2022-06-03)
PROC: 3E0R3BZ Introduction of Anesthetic Agent into Spinal Canal, Percutaneous Approach (ICD-10-PCS; 2022-06-03)
PROC: 00HU33Z Insertion of Infusion Device into Spinal Canal, Percutaneous Approach (ICD-10-PCS; 2022-06-03)
DX: O42.02 Full-term premature rupture of membranes, onset of labor within 24 hours of rupture (principal); Z37.1 Single stillbirth; Z3A.38 38 weeks gestation of pregnancy; Z90.49 Acquired absence of other specified parts of digestive tract
CPT/HCPCS: 01967; 36415; 59025; 59409; 84112; 85014; 85018; 85027; 86592; 86850; 86900; 86901; A9270-GY; J2590; J3010; J3490; J7120

== ENCOUNTER 2023-10-23 21:39 | Inpatient (IN) | payer BC ==
[2023-10-23] MEDS ORDERED: Water For Irrigation,Sterile 1,000 ML Container IRR PRN (21:42)
[2023-10-23] MEDS ORDERED: Ondansetron 4 MG/2 ML SDV IVPUSH PRN (21:42)
[2023-10-23] MEDS ORDERED: Misoprostol 200 MCG Tab PO PRN (21:42)
[2023-10-23] MEDS ORDERED: Tranexamic Acid IN NACL,ISO-OS 1,000 MG in Premix Bag 1 BAG IV PRN (21:42)
[2023-10-23] MEDS ORDERED: Lidocaine 1% 50 ML MDV INJECT PRN (21:42)
[2023-10-23] MEDS ORDERED: Sodium Chloride 0.9% 2.5 ML Syringe FLUSH PRN (21:42)
[2023-10-23] MEDS ORDERED: Methylergonovine 0.2 MG/1 ML Amp IM PRN (21:42)
[2023-10-23] MEDS ORDERED: Butorphanol 2 MG/ML SDV IVPUSH PRN (21:42)
[2023-10-23] MEDS ORDERED: Sodium Chloride 0.9% 10 ML Syringe FLUSH PRN (21:42)
[2023-10-23] MEDS ORDERED: Sodium Chloride 0.9% 20 ML SDV IV PRN (21:42)
[2023-10-23] MEDS ORDERED: Carboprost Tromethamine 250 MCG/1 mL Vial IM PRN (21:42)
[2023-10-23] MEDS ORDERED: Lactated Ringers 1,000 ML IV SCH (21:45)
[2023-10-23 22:06] LABS: HEMOGLOBIN 11.3 g/dL (12.0-16.0); MEAN CORPUSCULAR HEMOGLOBIN 27.6 pg (28.0-32.0); MEAN CORPUSCULAR HGB CONC 34.2 g/dL (32.0-36.0); MEAN CORPUSCULAR VOLUME 80.5 fL (83.0-99.0); MEAN PLATELET VOLUME 10.5 fL (9.4-12.3); PLATELET COUNT,PLT 269 K/uL (150-400); WHITE BLOOD CELL COUNT,WBC 10.24 K/uL (3.9-11.3)
[2023-10-23] MEDS: Oxytocin/0.9 % Sodium Chloride 30 UNIT/500 ML BAG IV SCH (22:38)
[2023-10-23] MEDS ORDERED: Benzocaine/Menthol 20%-0.5% Spray 78 GM Cannister TOP PRN (23:31)
[2023-10-23] MEDS ORDERED: Witch Hazel Medicated Pads 40/Jar TOP PRN (23:31)
[2023-10-23] MEDS ORDERED: Lanolin 100% Cream 7 GM Tube TOP PRN (23:31)
[2023-10-23] MEDS ORDERED: Docusate Sodium 100 MG Cap PO PRN (23:31)
[2023-10-23] MEDS ORDERED: Acetaminophen 500 MG Tab PO PRN (23:31)
[2023-10-24 05:47] LABS: HEMATOCRIT 29.8 % (37.0-47.0); HEMOGLOBIN 10.1 g/dL (12.0-16.0)
[2023-10-24] MEDS ORDERED: Oxytocin 10 Units/1 ML SDV ONE (06:08)
[2023-10-24] MEDS: Ibuprofen 800 MG Tab PO PRN (06:37)
== END 2023-10-25 13:05 | disposition home or self-care (01) | DRG 560 ==
LOC: MW.OB 21:39
PROVIDERS: ADMIT Obstetrics & Gynecology Obstetrics; ATTEND Obstetrics & Gynecology Obstetrics
PROC: 10E0XZZ Delivery of Products of Conception, External Approach (ICD-10-PCS; principal; 2023-10-23)
DX: O34.211 Maternal care for low transverse scar from previous cesarean delivery (principal); Z37.0 Single live birth; Z3A.41 41 weeks gestation of pregnancy
CPT/HCPCS: 36415; 59025; 59409; 85014; 85018; 85027; 86592; 86850; 86900; 86901; A9270-GY; J2590

== ENCOUNTER 2024-08-14 02:14 | Emergency (ER) | payer BC, OTHER ==
[2024-08-14] MEDS: Bacitracin Oint 28.35 GM Tube TOP STA (05:02)
== END 2024-08-14 03:35 | disposition home or self-care (01) ==
LOC: MW.ED 02:14
DX: S00.03XA Contusion of scalp, initial encounter (principal); T21.23XA Burn of second degree of upper back, initial encounter; Z90.49 Acquired absence of other specified parts of digestive tract; W01.198A Fall on same level from slipping, tripping and stumbling with subsequent striking against other object, initial encounter
CPT/HCPCS: 16020; 70450; 70450-26; 99283; 99283-25